=== PATIENT | male | born 1945 | race Caucasian/White ===

== ENCOUNTER → 2018-01-12 07:53 | Outpatient (CLI) | payer MEDICARE, BC, SELFPAY ==
[2018-01-12 09:11] LABS: Hemoglobin A1C 6.2 % (4.5-6.2)
[2018-01-12 09:16] LABS: Microalb ug/mg Crea 21.1 ug/mg Cr
[2018-01-12 09:37] LABS: ALT 33 U/L (12-78); AST 23 U/L (15-37); Albumin 3.7 g/dL (3.4-5.0); Alkaline Phosphatase 103 U/L (46-116); Anion Gap 5.4 mmol/L (3-11); BUN 18 mg/dL (7-18); Bilirubin, Total 0.6 mg/dL (0.2-1.0); CO2 31.6 mmol/L (21.0-32.0); Calcium 9.2 mg/dL (8.5-10.1); Chloride 102 mmol/L (98-107); Cholesterol 233 mg/dL (50-200); Estimated GFR 59.68 (mL/min/1.73m2); Glucose 142 mg/dL (70-100); HDL Cholesterol 34 mg/dL (40-60); LDL CHOLESTEROL 157 mg/dL (<100); Potassium 3.6 mmol/L (3.5-5.1); Sodium 139 mmol/L (136-145); Triglyceride 271 mg/dL (30-150)
== END ==
PROVIDERS: PCP Family Medicine; Visit Provider Family Medicine
DX: E11.9 Type 2 diabetes mellitus without complications (principal); E78.5 Hyperlipidemia, unspecified; I10 Essential (primary) hypertension
CPT/HCPCS: 36415; 80053; 80061; 83721; 82043; 82570; 83036

== ENCOUNTER 2018-01-27 11:44 | Outpatient (REF) | payer MEDICARE, BC, SELFPAY ==
--- NOTE | 2018-01-27 11:30 | SKI_PTH ---
PATIENT: Franc Toledo LOC: [facility] U#:[id number] AGE/SX: 72/M ROOM: RE01/27/[address]: Reena Grove MD, DC : 1945 BED: DIS: 01/27/2018 SPEC #: [id number] RECD: 01/27/18 13:00 STATUS: BENJAMÍN REDarío #: [id number] FELA: 01/27/18 11:[address]: Reena Grove DEPT: Surgical Specimen RECD BY: Estephania Barraza Tissues: 1 - SKIN BIOPSY(SHAVE/PUNCH) Procedures: SKIN LEVEL 4 SPECIAL STAIN 1 Comments: [id number]
== END 2018-01-27 12:04 ==
LOC: LBN 11:44
PROVIDERS: PCP Family Medicine; Visit Provider Family Medicine
DX: L28.0 Lichen simplex chronicus (principal); L41.0 Pityriasis lichenoides et varioliformis acuta
CPT/HCPCS: 88305; 88312

== ENCOUNTER 2019-05-26 02:13 | Outpatient (CLI) | payer MEDICARE, BC, SELFPAY ==
--- NOTE | 2019-05-26 08:31 | DI.RAD_ITS ---
EXAM: XR SHOULDER LT COMPLETE 2+V INDICATION: LT SHOULDER PAIN, M25.512. COMPARISON: No exams were available for comparison TECHNIQUE: 2D digital imaging was performed. FINDINGS: There is no fracture or dislocation. There are mild degenerative changes of the glenohumeral joint. There is some spurring at the tip of the acromion and mild spurring at the AC joint. A tiny calcif ication is seen near the greater tuberosity which could indicate calcific tendinosis. IMPRESSION: Mild degenerative changes.
== END 2019-05-26 02:33 ==
PROVIDERS: PCP Family Medicine; Visit Provider Family Medicine
DX: M25.512 Pain in left shoulder (principal); M19.012 Primary osteoarthritis, left shoulder
CPT/HCPCS: 73030

== ENCOUNTER → 2019-06-16 09:22 | Outpatient (BNVA) | payer MEDICARE, BC, SELFPAY | PROVIDERS: PCP Family Medicine; Referring Provider Family Medicine; Visit Provider Student in an Organized Health Care Education/Training Program | DX: M75.102 Unspecified rotator cuff tear or rupture of left shoulder, not specified as traumatic (principal); M75.22 Bicipital tendinitis, left shoulder; M75.52 Bursitis of left shoulder; M75.42 Impingement syndrome of left shoulder; M75.02 Adhesive capsulitis of left shoulder | CPT/HCPCS: 99204 ==

== ENCOUNTER 2019-06-24 01:35 | Outpatient (CLI) | payer MEDICARE, BC, SELFPAY ==
--- NOTE | 2019-06-24 08:07 | DI.MRI_ITS ---
EXAM: MR UPPER JOINT LT WO CLINICAL HISTORY: Acute, traumatic left shoulder pain, weakness,LT ROTATOR CUFF TENDINITIS, Recent fall, decreased range of motion, bursitis, capsulitis, m75.52,m75.42,m75.22,m75.02 TECHNIQUE: Multiplanar multisequence MRI was performed. COMPARISON: XR SHOULDER LT COMPLETE 2+V from 05/26/2019 FINDINGS: MR of the shoulder was performed according to the usual protocol. No significant bony signal abnorma lity is seen. There are moderate hypertrophic degenerative changes at the acromioclavicular joint. G lenoid labrum grossly intact by noncontrast criteria. Small shoulder joint effusion noted, small estefania ntity of free fluid in the subacromial bursa. Biceps tendon shows markedly abnormal signal and thickening in its course over the humeral head. No significant displacement from the bicipital groove. Linear abnormal signal in biceps tendon proximal to the bicipital groove, possible longitudinal tear. No retracted tear of the biceps tendon. There is thickening and abnormal signal in subscapularis, supraspinatus, and infraspinatus tendons. Small interstitial Luna attachment tears of all 3 tendons appeared to be present. Undersurface tear of distal supraspinatus noted. No convincing full-thickness tear or retraction seen involving the ro tator cuff. IMPRESSION: Marked tendinosis of the biceps tendon with suspected linear non retracted tear proximal to the bicip ital groove. Marked supraspinatus, subscapularis, and infraspinatus tendinosis with multiple small interstitial te ars of these tendons near their humeral attachment and also, in the case of the infraspinatus, more p roximally. No definite full-thickness or retracted rotator cuff tear.
== END 2019-06-24 01:55 ==
PROVIDERS: PCP Family Medicine; Visit Provider Student in an Organized Health Care Education/Training Program
DX: M25.512 Pain in left shoulder (principal); M75.22 Bicipital tendinitis, left shoulder; M75.52 Bursitis of left shoulder; M75.42 Impingement syndrome of left shoulder
CPT/HCPCS: 73221

== ENCOUNTER → 2019-06-29 14:41 | Outpatient (BNVA) | payer MEDICARE, BC, SELFPAY | PROVIDERS: PCP Family Medicine; Referring Provider Family Medicine; Visit Provider Student in an Organized Health Care Education/Training Program | DX: S46.012D Strain of muscle(s) and tendon(s) of the rotator cuff of left shoulder, subsequent encounter (principal); X58.XXXD Exposure to other specified factors, subsequent encounter; M75.22 Bicipital tendinitis, left shoulder; M75.52 Bursitis of left shoulder; M75.42 Impingement syndrome of left shoulder; M75.02 Adhesive capsulitis of left shoulder | CPT/HCPCS: 99214 ==

== ENCOUNTER 2019-12-04 06:58 | Outpatient (CLI) | payer MEDICARE, BC, SELFPAY | END 2019-12-04 07:18 | PROVIDERS: PCP Family Medicine; Visit Provider Family Medicine | DX: Z11.59 Encounter for screening for other viral diseases (principal) | CPT/HCPCS: U0003 ==

== ENCOUNTER 2019-12-06 09:00 | Outpatient (CLI) | payer MEDICARE, BC, SELFPAY ==
[2019-12-10 22:41] LABS: SARS-CoV-2 RNA Undetected (Undetected)
== END 2019-12-06 09:20 ==
PROVIDERS: PCP Family Medicine; Visit Provider Family Medicine
DX: Z11.59 Encounter for screening for other viral diseases (principal)
CPT/HCPCS: U0003

== ENCOUNTER 2019-12-30 03:23 | Outpatient (CLI) | payer MEDICARE, BC, SELFPAY ==
[2019-12-30 09:09] LABS: Hemoglobin A1C 6.3 % (3.8-5.6)
[2019-12-30 09:58] LABS: ALT 30 U/L (16-63); AST 20 U/L (15-37); Albumin 3.6 g/dL (3.4-5.0); Alkaline Phosphatase 82 U/L (46-116); BUN 21 mg/dL (7-18); Bilirubin, Total 0.5 mg/dL (0.2-1.0); CREATININE 0.99 mg/dL (0.70-1.30); Calcium 9.1 mg/dL (8.5-10.1); Calculated LDL 126 mg/dL (<100); Chloride 104 mmol/L (98-107); Cholesterol 221 mg/dL (<200); Glucose 152 mg/dL (74-106); HDL Cholesterol 27 mg/dL (40-60); Potassium 3.6 mmol/L (3.5-5.1); Sodium 140 mmol/L (136-145); Total Protein 6.8 g/dL (6.4-8.2); Triglyceride 344 mg/dL (<150)
[2019-12-31 11:25] LABS: PSA, Screening 0.4 ng/mL (0.0-6.5)
== END 2019-12-30 03:43 ==
PROVIDERS: PCP Family Medicine; Visit Provider Family Medicine
DX: E11.9 Type 2 diabetes mellitus without complications (principal); I10 Essential (primary) hypertension; Z00.00 Encounter for general adult medical examination without abnormal findings
CPT/HCPCS: 36415; 80053; 80061; 84153; 83036

== ENCOUNTER 2022-02-11 10:11 | Outpatient (REF) | payer MEDICARE, BC, SELFPAY ==
[2022-02-11 12:24] LABS: Bilirubin Negative (Negative); Blood Trace-intact (Negative); Clarity Clear (Clear); Glucose Negative (Negative); Ketones Negative (Negative); Leukocyte Esterase Negative (Negative); Nitrite Negative (Negative); Specific Gravity 1.025 (1.005-1.025); Urobilinogen 0.2 EU/dL (Up TO 0.2); pH 5.5 (5-8)
[2022-02-11 12:29] LABS: Bacteria Negative HPF (Negative); C & S Indicated? No; Casts Negative LPF (Negative); Crystals Negative HPF (Negative); Epithelial Cells Rare HPF (Negative); Mucus Negative (Negative); WBC Negative HPF (0-5)
== END 2022-02-11 10:12 | disposition home or self-care (01) ==
LOC: LBN 10:11
PROVIDERS: PCP Family Medicine; Visit Provider Family Medicine
DX: R31.9 Hematuria, unspecified (principal)
CPT/HCPCS: 81003; 81015

== ENCOUNTER 2022-02-18 12:44 | Outpatient (REF) | payer MEDICARE, BC, SELFPAY ==
[2022-02-18 13:50] LABS: Bilirubin Negative (Negative); Blood Negative (Negative); Clarity Clear (Clear); Glucose 100 mg/dL (Negative); Ketones Negative (Negative); Leukocyte Esterase Negative (Negative); Nitrite Negative (Negative); Specific Gravity 1.025 (1.005-1.025); Urobilinogen 0.2 EU/dL (Up TO 0.2); pH 5.5 (5-8)
== END 2022-02-18 12:45 | disposition home or self-care (01) ==
LOC: LBN 12:44
PROVIDERS: PCP Family Medicine; Visit Provider Family Medicine
DX: R31.9 Hematuria, unspecified (principal)
CPT/HCPCS: 81003

== ENCOUNTER 2022-03-14 16:28 | Outpatient (REF) | payer MEDICARE, BC, SELFPAY ==
[2022-03-14 15:09] LABS: Bilirubin Negative (Negative); Blood Negative (Negative); Clarity Clear (Clear); Glucose Negative (Negative); Ketones Negative (Negative); Leukocyte Esterase Negative (Negative); Nitrite Negative (Negative); Specific Gravity >= 1.030 (1.005-1.025); Urobilinogen 0.2 EU/dL (Up TO 0.2)
== END 2022-03-14 16:29 | disposition home or self-care (01) ==
LOC: LBN 16:28
PROVIDERS: PCP Family Medicine; Visit Provider Family Medicine
DX: R31.9 Hematuria, unspecified (principal)
CPT/HCPCS: 81003

== ENCOUNTER → 2022-04-01 09:51 | Outpatient (BNVA) | payer MEDICARE, BC, SELFPAY | PROVIDERS: PCP Family Medicine; Referring Provider Family Medicine; Visit Provider Surgery | DX: Z12.11 Encounter for screening for malignant neoplasm of colon (principal); K63.5 Polyp of colon | CPT/HCPCS: 99242 ==

== ENCOUNTER 2022-05-17 08:15 | Day surgery (SDC) | payer MEDICARE, BC, SELFPAY ==
--- NOTE | 2022-05-16 20:24 | HPE_ITS ---
Assessment and Plan Assessment and plan (1) Adenomatous polyps: Status: Acute Assessment and plan: Screening colonoscopy today History of Present Illness History of Present Illness Chief Complaint: Screening colonoscopy Narrative: Is a 76 years old and is here for screening colonoscopy. His last one was in 2019. It was performed at [facility]. The best of his understanding, he had 12 polyps removed. He tolerated the procedure without any problems. In the interim, he has had no significant change in his bowel habits like melena or hematochezia. He has been maintaining his weight without any difficulty. He denies any family history of colon cancer. 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 Left ventricular hypertrophy (Chronic 03/14/14) Hyperlipidemia (Chronic) Essential hypertension (Chronic 02/18/13) left ventricular hypertrophy by echo Diabetes mellitus (Chronic 12/12/14) Degenerative lumbar spinal stenosis (Chronic 10/03/16) extruded disc; disc protrusion, lateral recess stenosis 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 Medical History Abnormal liver function test now resolved Acute midline thoracic back pain (12/15/17) Alcohol intake above recommended sensible limits Alcohol intake above recommended sensible limits Bursitis of left shoulder Cerumen impaction Colon polyp 10/23/15 [facility] [place]- 4 MM SESSILE POLYP Degenerative lumbar disc (09/17/16) L4-5 severe Heel pain 08/27/12 Left shoulder pain Otalgia Surgical History Extraction of cataract bilat Eye surgery Right eye retinal 2005 H/O eye surgery right eye retina History of eye surgery Family History Mother Heart disease CHF Hypercholesterolemia Father No problems noted. Maternal Grandfather No problems noted. Maternal Grandmother No problems noted. Paternal Grandmother No problems noted. Son No problems noted. Son No problems noted. Daughter No problems noted. Social History Smoking/Tobacco Use Status: Never Smoking risk assessment performed?: Yes Alcohol Intake: current Alcohol Intake frequency: 0-2 drinks per day Alcohol type: beer and hard liquor Drug use: Never Substance use type: does not use Caregiver/Support person: No Household members: spouse Housing: house Communication Needs: None Do you need help understanding health information?: Never Pets and animals: No Current gender identity: male and decline to answer What is your relationship status?: How often do you talk on the phone with friends or family?: decline to answer How often do you get together with friends or relatives?: decline to answer How often do you attend evangelical or roman catholic services?: decline to answer Do you belong to any clubs or organized social groups?: decline to answer Panel score (0-1 are the most socially isolated patients): 1 What type of physical activity do you participate in: other Details: Cardio Duration: 30-45 minutes/day Frequency: 3-4 times per week Christen/Druze: Pentecostalism Special christen needs: No Seatbelt use: always Drive intox or ride w/intox coach tour driver: No Do you feel safe at home: Yes Meds Allergies and Home Medications Allergies Allergy/AdvReac Type Severity Reaction Status Date / Time No Known Allergies Allergy Verified 05/17/22 08:36 Home Medications Medication Instructions Recorded Confirmed Type multivitamin 1 tab PO DAILY 08/21/12 05/17/22 History magnesium oxide 1 tab PO DAILY 06/16/14 05/17/22 History ibuprofen 600 mg tablet 600 mg PO TID PRN 01/26/18 05/17/22 History triamcinolone acetonide 0.1 % 1 applic topical BID #30 grams 11/25/18 05/17/22 Rx topical cream betamethasone valerate 0.1 % 1 applic topical BID PRN rash #15 06/29/21 05/17/22 Rx topical cream grams clotrimazole 1 % topical cream 1 applic topical BID PRN rash #30 06/29/21 05/17/22 Rx grams potassium chloride 20 mEq 20 meq PO BID #180 tabs 08/14/21 05/17/22 Rx tablet,extended release hydrochlorothiazide 25 mg tablet 12.5 mg PO DAILY #90 tabs 08/16/21 05/17/22 Rx sildenafil 100 mg tablet 100 mg PO DAILY PRN sexual 08/28/21 05/17/22 Rx activity #30 tabs amlodipine 5 mg tablet 5 mg PO DAILY #90 tabs 10/08/21 05/17/22 Rx lisinopril 40 mg tablet 40 mg PO DAILY #90 tabs 10/08/21 05/17/22 Rx psyllium husk 0.4 gram capsule 0.4 g PO DAILY 04/01/22 05/17/22 History (Metamucil) benzonatate 100 mg capsule 100 mg PO TID PRN cough #30 caps 04/09/22 05/17/22 Rx Exam Const General: cooperative, healthy appearing and comfortable Orientation: awake and oriented x3 Eyes General: appearance normal, both eyes and all related structures Conjunctivae: conjunctivae normal Sclera: sclerae normal Resp Effort & Inspection: normal respiratory effort and able to speak in complete sentences Auscultation: clear to auscultation bilaterally Cardio Jugular venous pressure: no JVD Rate: regular rate Rhythm: regular rhythm Heart Sounds: S1 normal and S2 normal GI Inspection: non-distended Palpation: soft, no guarding, no hernias and nontender Auscultation: normal bowel sounds Skin General skin exam: normal turgor Neuro General: patient alert, patient awake and patient oriented x3 Cognition: normal cognition Extrem Right lower extremity: no edema Left lower extremity: no edema
--- NOTE | 2022-05-16 20:26 | W.PM.DSUDISC ---
Date of service: 05/17/22 Time of Service: 10:59 Discharge Plan Disposition Patient Disposition: Home Condition: Good Discharge Details Reason For Visit: Screening colonoscopy Attending Provider: Natanael Loo Primary Care Provider: Reena Grove Home Meds and New Rx's Prescriptions: Continued ibuprofen 600 mg tablet 600 mg PO TID PRN psyllium husk [Metamucil] 0.4 gram capsule 0.4 g PO DAILY multivitamin 1 EACH tablet 1 tab PO DAILY magnesium oxide 250 MG tablet 1 tab PO DAILY Label Comments: 12/16/16 pt states he only takes one tab daily ts triamcinolone acetonide 0.1 % cream 1 applic TP BID Qty: 30 0RF clotrimazole 1 % cream 1 applic topical BID PRN (Reason: rash) Qty: 30 0RF betamethasone valerate 0.1 % cream 1 applic topical BID PRN (Reason: rash) Qty: 15 0RF Rx Instructions: use sparingly for as few days as possible.Steroids on the face can be harmful potassium chloride 20 mEq tablet extended release 20 meq PO BID Qty: 180 3RF hydrochlorothiazide 25 mg tablet 12.5 mg PO DAILY Qty: 90 3RF sildenafil 100 mg tablet 100 mg PO DAILY PRN (Reason: sexual activity) Qty: 30 2RF Rx Instructions: administer 30 minutes to 4 hours before activity lisinopril 40 mg tablet 40 mg PO DAILY Qty: 90 3RF amlodipine 5 mg tablet 5 mg PO DAILY Qty: 90 3RF benzonatate 100 mg capsule 100 mg PO TID PRN (Reason: cough) Qty: 30 3RF Discontinued bisacodyl [Dulcolax (bisacodyl)] 5 mg tablet,delayed release (DR/EC) 5 mg PO ONCE Qty: 4 0RF Rx Instructions: take per colonoscopy instructions polyethylene glycol 3350 17 gram/dose powder 238 g PO ONCE Qty: 238 0RF Rx Instructions: take per colonoscopy instructions Discharge Instructions Instructions: Colorectal Polyps (GEN) Additional Instructions: 1. If tolerated, consume a soft, low fiber diet for 1-2 days. 2. Do not drive, drink alcohol, operate machinery, make critical decisions, or do activities that require coordination or balance for 24 hours. 3. Because air was put into your colon during the procedure, expelling air from your rectum (passing gas or farting) is normal. 4. You may not have a bowel movement for 1-3 days because of the colonoscopy prep. This is normal. 5. Go directly to the emergency room if you notice any of the following: Develop chills (warm to touch), or if you have a thermometer and your temperature is above 101 Difficulty breathing or difficultly swallowing Persistent vomiting Severe abdominal pain, other than gas cramps Severe chest pain Black, tarry stools Any bleeding ? exceeding one tablespoon 6. Call your physician if the site where your intravenous was started becomes red, swollen, painful, and warm to touch. 7. Your physician has reviewed your pre-procedure medications. Please continue to take those medications as previously ordered. You will be given specific information/education regarding any changes to your medications before leaving. Activity:: Activity as Tolerated Diet:: As Tolerated Discharge Orders Discharge Orders: Discharge Order (Routine); Ordered 05/16/22 Ordered By: Natanael Loo DS: Diagnosis Discharge Diagnosis (1) Adenomatous polyps: Status: Acute Asessment and Plan: The quality of your prep was great. We had good visualization of the entire colon. I removed 10 polyps total. These were basically in 3 clusters. One group was in the cecum, one group was around 110 cm from the anus, and 1 group was around 30 cm from the anus. I would expect to have a small amount of bleeding in your bowel movements over the next few days, and that should resolve on its own. I will contact you with the results of the pathology report once they are available. At that point, we can discuss the next steps, which I suspect will be an interval colonoscopy around 3 to 5 years from now.
--- NOTE | 2022-05-16 20:29 | W.COLOREPORT ---
Date of service: 05/17/22 Time of Service: 11:01 Colonoscopy Report Date of procedure: 05/17/22 Pre-op diagnosis general: Screening colonoscopy Post-op diagnosis procedure note: other (Colon polyps) Procedure: Colonoscopy with polypectomy Surgeon: Natanael Loo Anesthesia Type: General:No Airway Estimated blood loss (mL): 20 Pathology: other (Cecal polyps x3, colon polyps around 110 cm x 3, colon polyps around 30 cm x 4) Complications: None Disposition: same day Indications: Who is a is a 76-year-old male who was undergone colonoscopy in the past. He was diagnosed with colon polyps. He is following up today for his next screening colonoscopy. Prep: Miralax/Dulcolax Procedure Start Time: 10:08 Procedure End Time: 10:36 Retraction Time: 23 Findings: Cecal polyps, colon polyps around 110 cm, and colon polyps around 30 cm. Procedure Description: After the induction of monitored anesthetic care, and with the patient in left lateral decubitus position, I began by performing an external anorectal exam.? Perineum and skin were normal, as was the anal verge.? There was no evidence of external hemorrhoids.? Next, I performed a digital rectal exam.? I did not appreciate any abnormal findings.? Next, I advanced a colonoscope into the rectal vault.? I performed retroflexion.? This was normal.? Using insufflation, I then advanced the colonoscope beyond the rectal folds and into the sigmoid colon before advancing towards the cecum.? The quality of the prep was excellent.? The scope was noted to be in the cecum by identification of the ileocecal valve and appendiceal orifice.? I was able to identify 3 polyps in the cecum. There were several centimeters apart. They were all less than 0.5 cm in size. They were all sessile. I performed cold forceps polypectomy at all 3 sites, and there was minimal bleeding. Around 110 cm, identified another cluster of polyps. They were by several centimeters around the colon diameter. They were all less than 0.5 cm. 2 were sessile, and the third was mildly pedunculated. I performed completion polypectomy at all 3 sites with cold forceps. There was minimal bleeding.. I then began withdrawing the colonoscope using repeated irrigation as necessary for full evaluation of the colonic mucosa. Around 30 cm from the anal verge I identified 4 more polyps. ?These were all sessile in nature, and all were less than 0.5 cm. ?I was able to remove them with a cold forcep polypectomy.. ?I examined the sites, and there was minimal bleeding. ?Once this was completed, I continued to withdraw the scope and examine the remainder of the colonic mucosa.?Once the scope was withdrawn to the level of the rectum, great care was taken to examine portions of the rectal folds.? Finally, the scope was withdrawn and the patient was brought to the same-day surgery recovery unit as the anesthetic wore off. ?The findings and instructions were shared with the patient prior to discharge.
[2022-05-17 08:44] VITALS: BP 139/80; PULSE 70; RESP 16; TEMP 36.7; O2SAT 97
[2022-05-17] MEDS: Lactated Ringers 1,000 ML 80 ML IV (09:08)
--- NOTE | 2022-05-17 09:15 | W.ANESPRE ---
General Info Date of Service Date Performed: 05/17/22 Height: 5 ft 11 in Weight: 102.9 kg Body Mass Index (BMI): 31.6 Surgical Procedure: Operation Date: 05/17/22 10:05 Proposed Procedure Side Surgeon aurelio Loo MD Meds Allergies and Home Medications Allergies Allergy/AdvReac Type Severity Reaction Status Date / Time No Known Allergies Allergy Verified 05/17/22 08:36 Home Medication Medication Instructions Recorded multivitamin 1 tab PO DAILY 08/21/12 magnesium oxide 1 tab PO DAILY 06/16/14 ibuprofen 600 mg tablet 600 mg PO TID PRN 01/26/18 triamcinolone acetonide 0.1 % 1 applic topical BID #30 grams 11/25/18 topical cream betamethasone valerate 0.1 % 1 applic topical BID PRN rash #15 06/29/21 topical cream grams clotrimazole 1 % topical cream 1 applic topical BID PRN rash #30 06/29/21 grams potassium chloride 20 mEq 20 meq PO BID #180 tabs 08/14/21 tablet,extended release hydrochlorothiazide 25 mg tablet 12.5 mg PO DAILY #90 tabs 08/16/21 sildenafil 100 mg tablet 100 mg PO DAILY PRN sexual 08/28/21 activity #30 tabs amlodipine 5 mg tablet 5 mg PO DAILY #90 tabs 10/08/21 lisinopril 40 mg tablet 40 mg PO DAILY #90 tabs 10/08/21 psyllium husk 0.4 gram capsule 0.4 g PO DAILY 04/01/22 (Metamucil) benzonatate 100 mg capsule 100 mg PO TID PRN cough #30 caps 04/09/22 Current Visit Medications: Current Medications Generic Name Dose Route Start Last Admin Trade Name Freq PRN Reason Stop Dose Admin Hyoscyamine Sulfate 0.125 mg 05/16/22 20:30 Hyoscyamine 0.125 Mg Sl/Oral/Chew SL DIRECTED PRN Ringer's Solution 1,000 mls @ 80 mls/hr 05/17/22 06:00 05/17/22 09:08 IV 06/15/22 23:59 80 mls/hr INFUSION AUGUSTINE Administration IV Miscellaneous Supplies 1 each 05/17/22 06:00 Iv Access IV 06/15/22 23:59 DIRECTED AUGUSTINE Ondansetron HCl 4 mg 05/16/22 20:30 Ondansetron 4 Mg/2 Ml Vial IVP Q4H PRN PRN Nausea / Vomiting Sodium Chloride 0 ml 05/17/22 06:00 Normal Saline Flush 10 Ml Syr IV 06/15/22 23:59 PRN PRN Sodium Chloride 0 ml 05/17/22 06:00 Normal Saline 10 Ml Vial IJ 06/15/22 23:59 DIRECTED PRN Sterile Water 0 ml 05/17/22 06:00 Water,Injection,Sterile 10 Ml Vial IJ 06/15/22 23:59 DIRECTED PRN PFSH Active Problems Active Problems: Problem Status Onset Code Adenomatous polyps D36.9 Hematuria R31.9 Chronic cough R05 Sensation of fullness in left ear H93.8X2 Otorrhea, left ear H92.12 Adhesive capsulitis of left shoulder M75.02 Impingement syndrome of left shoulder M75.42 Tendinitis of long head of biceps brachii of left shoulder M75.22 Left rotator cuff tear M75.102 Heel pain 08/27/12 M79.673 Liver function test abnormality R94.5 PLEVA (pityriasis lichenoides et varioliformis acuta) L41.0 Psoriasis 12/16/16 L40.9 Leukoencephalitis, subacute 03/08/14 A81.1 Left ventricular hypertrophy 03/14/14 I51.7 Hyperlipidemia E78.5 Essential hypertension 02/18/13 I10 Diabetes mellitus 12/12/14 E11.9 Degenerative lumbar spinal stenosis 10/03/16 M48.061 B-cell lymphoma 04/26/13 C85.10 Medical History Medical History Abnormal liver function test now resolved Acute midline thoracic back pain (12/15/17) Alcohol intake above recommended sensible limits Alcohol intake above recommended sensible limits Bursitis of left shoulder Cerumen impaction Colon polyp 10/23/15 [facility]- 4 MM SESSILE POLYP Degenerative lumbar disc (09/17/16) L4-5 severe Heel pain 08/27/12 Left shoulder pain Otalgia Medical History Comments:: reported it was noted that Franc had some reactive airway under general anesthesia when at [facility] for lumbar surgery. Surgical History Surgical History Extraction of cataract bilat Eye surgery Right eye retinal 2006 H/O eye surgery right eye retina History of eye surgery Tobacco Smoking/Tobacco Use Status: Never Alcohol Alcohol Intake: current Alcohol intake frequency: 0-2 drinks per day Alcohol type: beer and hard liquor Substance Use Substance use: Never Substance use type: does not use Vital Signs and Lab Results Vital Signs Most Recent Vital Signs in EMR: Most Recent Vital Signs Temp Pulse Resp BP Pulse Ox 36.7 C 70 16 139/80 97 05/17/22 08:44 05/17/22 08:44 05/17/22 08:44 05/17/22 08:44 05/17/22 08:44 Lab Results Blood Type / Crossmatch: No Data to Display Complete Blood Count: No Data to Display Complete Metabolic Panel: No Data to Display Liver Function Panel: No Data to Display Coagulation Panel: No Data to Display Cardiac Panel: No Data to Display Arterial Blood Gas: No Data to Display Venous Blood Gas: No Data to Display Pancreas Panel: No Data to Display Thyroid Panel: No Data to Display Infectious Disease: No Data to Display Blood Cultures: No Data to Display Toxicology Panel: No Data to Display Imaging and Studies Imaging and Studies Study information below may be from another EMR and interpreted by another provider. Please see original notes in EMR for more complete details. Stress Test Summary: 05/03/14:Normal myocardial perfusion imaging; LVEF 69%. Echocardiogram Summary: 03/14/14 LEFT VENTRICLE/LVEF: LVEF 65-70%. Normal size. Severe, concentric left ventricular hypertrophy. Septum measures 14 mm thickness, posterior wall 13 mm. RIGHT VENTRICLE: Normal size and function. AORTIC VALVE: Trileaflet. Sclerotic leaflets. No aortic stenosis or insufficiency. MITRAL VALVE: Mild mitral insufficiency, no stenosis. Mild mitral annular calcifications. TRICUSPID VALVE: Mild tricuspid insufficiency. RSV/PA/RIGHT ATRIAL PRESSURE: Pulmonary artery pressure estimated at 15-20 mmHg plus right atrial pressure. PULMONIC VALVE: No pulmonic stenosis or insufficiency. ATRIA: Within normal limits. DIASTOLIC INDICES: GREAT VESSELS: The inferior vena cava is normal in size and collapses with inspiration. Right atrial pressure estimated at less than 10 mmHg. PERICARDIUM: No effusion, rhythm sinus. Carotid Artery Summary:: 03/03/14:AROTID ULTRASOUND: There is a minimal amount of calcified plaque seen in both common carotid bulbs. The velocity measurements obtained are within the normal range bilaterally. The findings are consistent with a mild, 1-39% degree of stenosis. Both vertebral arteries show normal antegrade flow. IMPRESSION: Minimal calcific plaque. No significant stenosis Anesthesia Assessment and Plan Anesthesia History Personal History: No History of Anesthesia Complications Family History: No Family History of Anesthesia Complications Exercise Tolerance Exercise Tolerance: Metabolic Equivalents>4 Pertinent Negatives Pertinent Negatives: No Symptoms of GERD Cardiac & Pulmonary Exam Cardiac Exam: Normal S1/S2 Heart Sounds Pulmonary Exam: Clear Bilateral Breath Sounds Implantable Cardiac Device Does patient have a Pacemaker or an ICD?: No Airway Exam Known Difficult Airway: No Mallampati Class: 1 Mouth Opening: Normal (> 3cm) Thyromental Distance: Greater than 3 cm Neck Range of Motion: Full ROM Neck Circumference: Normal Teeth Condition: Normal Dentition ASA Classification ASA Score: ASA 3 Emergency Case?: No NPO Status NPO Status: NPO Clears >2 hours, Solids >8 hours Anesthesia Plan Resuscitation Status: Full Code Anesthesia Technique: General Anesthesia Airway Planned: Natural Airway Monitors Used: Standard Monitors
[2022-05-17 09:50] VITALS: BMI 31.6
--- NOTE | 2022-05-17 10:22 | BOWEL_PTH ---
PATIENT: Franc Toledo LOC: [facility] U#:[id number] AGE/SX: 76/M ROOM: RE05/17/[address]: Natanael Loo MD : 1945 BED: DIS: 05/17/2022 SPEC #: [id number] RECD: 05/17/22 12:43 STATUS: BENJAMÍN REQ #: [id number] FELA: 05/17/22 10:[address]: Natanael Loo DEPT: Surgical Specimen RECD BY: Jonna Quezada ENTERED: 05/17/22 12:45 SP TYPE: Bowel OTHR DR: Reena Grove MD, DC Tissues: 1 - BIOPSY BOWEL 2 - BIOPSY BOWEL 3 - BIOPSY BOWEL Procedures: GROSS AND MICRO LEVEL 4 Comments: [id number]
[2022-05-17 10:45] VITALS: BP 111/75; PULSE 59; RESP 12; TEMP 36.5; O2SAT 95
[2022-05-17 11:13] VITALS: BP 129/78; PULSE 68; RESP 16; TEMP 36.5; O2SAT 95
--- NOTE | 2022-05-17 11:14 | W.ANESPOSTOP ---
Postoperative Evaluation Date, Time and Location Date Performed: 05/17/22 Time Performed: 10:50 Patient Location: Day Surgery Unit Vital Signs Most Recent Imported Vital Signs: Most Recent Vital Signs Temp Pulse Resp BP Pulse Ox 36.5 C 59 L 12 111/75 95 05/17/22 10:45 05/17/22 10:45 05/17/22 10:45 05/17/22 10:45 05/17/22 10:45 Pain Score Most Recent Pain Score: Most Recent Pain Score Pain Level 0 05/17/22 10:45 Assessment Mental Status: Awake (Alert & Oriented to Patient Baseline) Airway and Respiratory Function: Patent airway with normal (patient baseline) respiratory exam Cardiovascular Function: Hemodynamically Stable Hydration Status: Adequately Hydrated Nausea & Vomiting: No Nausea or Vomiting Pain: Pt. Denies Any Pain Peripheral Nerve Block: Patient did not receive a nerve block
== END 2022-05-17 11:55 | disposition home or self-care (01) ==
LOC: SUR 08:15
PROVIDERS: PCP Family Medicine; Visit Provider Surgery
PROC: 0DJD8ZZ Inspection of Lower Intestinal Tract, Via Natural or Artificial Opening Endoscopic (ICD-10-PCS; CPT 45378; principal; 2022-05-17 10:00)
DX: Z12.11 Encounter for screening for malignant neoplasm of colon (principal); Z86.010 Personal history of colon polyps; I10 Essential (primary) hypertension; E11.9 Type 2 diabetes mellitus without complications; K63.5 Polyp of colon
CPT/HCPCS: 45380; 88305

== ENCOUNTER 2022-07-29 07:59 | Outpatient (CLI) | payer MEDICARE, BC, SELFPAY ==
[2022-07-29 12:32] LABS: ALT 28 U/L (16-63); AST 21 U/L (15-37); Albumin 3.5 g/dL (3.4-5.0); Alkaline Phosphatase 95 U/L (46-116); Anion Gap 4.5 mmol/L (3-11); BUN 21 mg/dL (7-18); Bilirubin, Total 0.4 mg/dL (0.2-1.0); CO2 31.5 mmol/L (21.0-32.0); CREATININE 1.1 mg/dL (0.70-1.30); Calcium 9.9 mg/dL (8.5-10.1); Chloride 104 mmol/L (98-107); Estimated GFR 70.01 (mL/min/1.73m2); Glucose 158 mg/dL (74-106); Potassium 3.7 mmol/L (3.5-5.1); Sodium 140 mmol/L (136-145); Total Protein 7.2 g/dL (6.4-8.2)
[2022-07-29 14:23] LABS: Hemoglobin A1C 6.4 % (<5.7)
== END 2022-07-29 08:00 | disposition home or self-care (01) ==
LOC: LOS 07:59
PROVIDERS: PCP Family Medicine; Referring Provider Family Medicine; Visit Provider Family Medicine
DX: I10 Essential (primary) hypertension (principal); E11.9 Type 2 diabetes mellitus without complications; R94.5 Abnormal results of liver function studies
CPT/HCPCS: 36415; 80053; 83036

== ENCOUNTER 2023-04-23 02:58 | Outpatient (CLI) | payer MEDICARE, BC, SELFPAY ==
[2023-04-23 12:26] LABS: Abs Immature Grans 0.01 10^3/uL (0.0-0.06); Absolute Basophil Count 0.03 10^3/uL (0.0-0.2); Absolute Eosinophil Count 0.12 10^3/uL (0.0-0.7); Absolute Lymphocyte Count 1.28 10^3/uL (1.2-3.4); Absolute Monocyte Count 0.47 10^3/uL (0.1-0.8); Absolute Neutrophil Count 3.23 10^3/uL (1.2-6.7); Basophils % 0.6; Eosinophils % 2.3; HCT 45.1 % (40.0-50.0); HGB 15.4 g/dL (13.5-17.5); Immature Grans % 0.2; Lymphocytes % 24.9; MCH 31.7 pg (27.0-33.0); MCHC 34.1 % (32.0-36.0); MCV 93 fL (80-95); MPV 9.3 fL (8.0-11.0); Monocytes % 9.1; Neutrophils % 62.9; Platelet Count 159 10^3/uL (130-400); RBC 4.86 10^6/uL (4.36-5.78); RDW 13.8 % (11.8-14.1); RDW-SD 47.1 fL; WBC 5.14 10^3/uL (4.4-10.8)
[2023-04-23 12:42] LABS: ALT 26 U/L (16-63); AST 16 U/L (15-37); Albumin 3.6 g/dL (3.4-5.0); Alkaline Phosphatase 79 U/L (46-116); Anion Gap 6.9 mmol/L (3-11); BUN 23 mg/dL (7-18); Bilirubin, Total 0.7 mg/dL (0.2-1.0); CO2 30.1 mmol/L (21.0-32.0); CREATININE 1.3 mg/dL (0.70-1.30); Calcium 9.9 mg/dL (8.5-10.1); Chloride 102 mmol/L (98-107); Estimated GFR 56.93 (mL/min/1.73m2); Glucose 115 mg/dL (74-106); LDH 166 U/L (85-227); Potassium 3.7 mmol/L (3.5-5.1); Sodium 139 mmol/L (136-145); Total Protein 7.6 g/dL (6.4-8.2)
== END 2023-04-23 02:59 | disposition home or self-care (01) ==
LOC: LBO 02:58
PROVIDERS: PCP Family Medicine; Visit Provider Nurse Practitioner Adult Health
DX: C82.21 Follicular lymphoma grade III, unspecified, lymph nodes of head, face, and neck (principal)
CPT/HCPCS: 36415; 80053; 83615; 85025

== ENCOUNTER → 2023-05-07 01:35 | Outpatient (CLI) | payer MEDICARE, BC, SELFPAY ==
--- NOTE | 2023-05-07 09:33 | DI.RAD_ITS ---
Exam(s) XR THUMB RT EXAM: XR THUMB RT CLINICAL HISTORY: right thumb pain,m79.644. TECHNIQUE: 2D digital imaging was performed. COMPARISON: No exams were available for comparison FINDINGS: 3 views No evidence of fracture nor dislocation. The main findings are advanced degenerative changes at the interphalangeal joint of the thumb with advanced joint space narrowing and prominent osteophytes. Th e thumb metacarpophalangeal joint exhibits only mild degenerative changes and the 1st carpometacarpal joint between the base of the thumb metacarpal and the trapezium of the distal carpal row appears un remarkable. Other interphalangeal joints in the hand appear relatively unremarkable with the exception of the DIP joint of the 5th finger which exhibits similar findings to the thumb interphalangeal joint. IMPRESSION: As above. DATA REPOSITORY: RADIATION DOSE DELIVERED:
== END ==
PROVIDERS: PCP Family Medicine; Visit Provider Family Medicine
DX: M19.041 Primary osteoarthritis, right hand (principal)
CPT/HCPCS: 73140

== ENCOUNTER 2023-08-06 05:20 | Outpatient (CLI) | payer MEDICARE, BC, SELFPAY ==
[2023-08-06 10:04] LABS: ALT 38 U/L (16-63); AST 18 U/L (15-37); Albumin 3.5 g/dL (3.4-5.0); Alkaline Phosphatase 82 U/L (46-116); Anion Gap 7.6 mmol/L (3-11); BUN 22 mg/dL (7-18); Bilirubin, Total 0.6 mg/dL (0.2-1.0); CO2 29.4 mmol/L (21.0-32.0); Calcium 9.3 mg/dL (8.5-10.1); Calculated LDL 108 mg/dL (<100); Chloride 106 mmol/L (98-107); Cholesterol 178 mg/dL (<200); Glucose 141 mg/dL (74-106); HDL Cholesterol 43 mg/dL (40-60); Potassium 3.6 mmol/L (3.5-5.1); Sodium 143 mmol/L (136-145); Total Protein 7.2 g/dL (6.4-8.2); Triglyceride 135 mg/dL (<150)
[2023-08-06 10:25] LABS: Hemoglobin A1C 6.3 % (<5.7)
== END 2023-08-06 05:21 | disposition home or self-care (01) ==
LOC: LBO 05:20
PROVIDERS: PCP Family Medicine; Visit Provider Family Medicine
DX: I10 Essential (primary) hypertension (principal); E11.9 Type 2 diabetes mellitus without complications
CPT/HCPCS: 36415; 80053; 80061; 83036

== ENCOUNTER 2023-12-04 12:21 | Inpatient (IN) | payer MEDICARE, BC, SELFPAY ==
[2023-12-04] VITALS (32 sets, daily range): BP systolic 126–157; BP diastolic 52–74; PULSE 71–98; RESP 3–35; TEMP 36.4–39.4; O2SAT 90–95
--- NOTE | 2023-12-04 12:15 | RT.EKG_ITS ---
APPROVED REPORT Exam: Resting ECG Reason for Exam: Sepsis Patient Location: E HR:94 bpm ECG Measurements Heart Rate 94 AXIS MN 228 P 17 QRSd 138 QRS -81 QT 369 T 54 QTc 456 Conclusion Sinus rhythm...normal P axis, V-rate 60- 99 Atrial premature complexes...SV complexes w/ short R-R intvls Prolonged MN interval...MN >215, V-rate 91-120 Right bundle branch block...QRSd>120, terminal axis(90,270) Borderline ST elevation, lateral leads...ST >0.06mV, I aVL V5 V6
--- NOTE | 2023-12-04 12:30 | DI.RAD_ITS ---
Exam(s) XR PORTABLE CHEST AP EXAM: XR PORTABLE CHEST AP CLINICAL HISTORY: Fever, SOB, Cough, Hypoxia. TECHNIQUE: 2D digital imaging was performed. COMPARISON: No exams were available for comparison FINDINGS: Single AP portable view. Heart size is normal. The mediastinum is not widened. There increased markings in both lower lobes-probable infiltrates. No obvious pleural effusions. No pneumothorax. No fractures. IMPRESSION: Bilateral infiltrates. Recommend nonportable PA and lateral views when clinically possible or CT sca n. DATA REPOSITORY: RADIATION DOSE DELIVERED:
--- NOTE | 2023-12-04 12:33 | ED.GENADUL_ITS ---
Discharge Plan Disposition Patient Disposition: Admit to [facility] Condition: Serious Discharge Details Clinical Impression: Pneumonia, Acute confusion, Hypoxia Primary Care Provider: Reena Grove ED Provider: Alia Rose Home Meds and New Rx's Prescriptions: No Action atorvastatin 20 mg tablet 10 mg PO DAILY benzonatate 100 mg capsule 100 mg PO TID PRN (Reason: cough) 7 Days Qty: 20 0RF psyllium husk [Metamucil] 0.4 gram capsule 0.4 g PO DAILY aspirin [Adult Aspirin Regimen] 81 mg tablet,delayed release (DR/EC) 81 mg PO DAILY betamethasone valerate 0.1 % cream 1 applic topical BID PRN (Reason: rash) Qty: 15 0RF Rx Instructions: use sparingly for as few days as possible.Steroids on the face can be harmful clotrimazole 1 % cream 1 applic topical BID PRN (Reason: rash) Qty: 30 0RF amlodipine 5 mg tablet 5 mg PO DAILY Qty: 90 3RF hydrochlorothiazide 25 mg tablet 12.5 mg PO DAILY Qty: 90 3RF lisinopril 40 mg tablet 40 mg PO DAILY Qty: 90 3RF potassium chloride 20 mEq tablet extended release 20 meq PO BID Qty: 180 3RF magnesium oxide 250 MG tablet 1 tab PO DAILY Patient Comments: 12/16/16 pt states he only takes one tab daily ts triamcinolone acetonide 0.1 % cream 1 applic TP BID Qty: 30 0RF sildenafil 100 mg tablet 100 mg PO DAILY PRN (Reason: sexual activity) Qty: 30 2RF Rx Instructions: administer 30 minutes to 4 hours before activity sertraline 50 mg tablet 50 mg PO DAILY Qty: 90 4RF HPI General Mode of arrival: EMS . Date/Time Provider Initiated Documentation: 12/04/23 12:22 . Limitations to Documentation: no limitations and physical limitation . Information obtained by: patient, EMS, RN notes reviewed and old records reviewed . HPI Narrative: 78-year-old male presents to the ER via EMS with a chief complaint of URI type symptoms, productive cough, fever was seen in urgent care yesterday. Per EMS fever 102. They did give him an albuterol nebulizer on scene due to O2 sat of 88 to 89% on room air. Patient does not normally wear oxygen. Related Data Home Medications ?Medication ?Instructions ?Recorded ?Confirmed magnesium oxide 1 tab PO DAILY 06/16/14 12/04/23 triamcinolone acetonide 0.1 % 1 applic topical BID #30 grams 11/25/18 12/04/23 topical cream sildenafil 100 mg tablet 100 mg PO DAILY PRN sexual 08/28/21 12/04/23 activity #30 tabs psyllium husk 0.4 gram capsule 0.4 g PO DAILY 04/01/22 12/04/23 (Metamucil) amlodipine 5 mg tablet 5 mg PO DAILY #90 tabs 05/27/23 12/04/23 betamethasone valerate 0.1 % 1 applic topical BID PRN rash #15 05/27/23 12/04/23 topical cream grams clotrimazole 1 % topical cream 1 applic topical BID PRN rash #30 05/27/23 12/04/23 grams hydrochlorothiazide 25 mg tablet 12.5 mg (1/2 x 25 mg) PO DAILY #90 05/27/23 12/04/23 tabs lisinopril 40 mg tablet 40 mg PO DAILY #90 tabs 05/27/23 12/04/23 potassium chloride 20 mEq 20 meq PO BID #180 tabs 05/27/23 12/04/23 tablet,extended release sertraline 50 mg tablet 50 mg PO DAILY #90 tabs 07/03/23 12/04/23 aspirin 81 mg tablet,delayed 81 mg PO DAILY 08/26/23 12/04/23 release (Adult Aspirin Regimen) atorvastatin 20 mg tablet 10 mg PO DAILY 12/02/23 12/04/23 benzonatate 100 mg capsule 100 mg PO TID PRN cough 7 days #20 12/02/23 12/04/23 caps Previous Rx's ?Medication ?Instructions ?Recorded triamcinolone acetonide 0.1 % 1 applic topical BID #30 grams 11/25/18 topical cream sildenafil 100 mg tablet 100 mg PO DAILY PRN sexual 08/28/21 activity #30 tabs amlodipine 5 mg tablet 5 mg PO DAILY #90 tabs 05/27/23 betamethasone valerate 0.1 % 1 applic topical BID PRN rash #15 05/27/23 topical cream grams clotrimazole 1 % topical cream 1 applic topical BID PRN rash #30 05/27/23 grams hydrochlorothiazide 25 mg tablet 12.5 mg (1/2 x 25 mg) PO DAILY #90 05/27/23 tabs lisinopril 40 mg tablet 40 mg PO DAILY #90 tabs 05/27/23 potassium chloride 20 mEq 20 meq PO BID #180 tabs 05/27/23 tablet,extended release sertraline 50 mg tablet 50 mg PO DAILY #90 tabs 07/03/23 benzonatate 100 mg capsule 100 mg PO TID PRN cough 7 days #20 12/02/23 caps Allergies Allergy/AdvReac Type Severity Reaction Status Date / Time No Known Allergies Allergy Verified 12/04/23 12:32 General HILARY: 2 Review of Systems All systems reviewed & are unremarkable except as noted in HPI and below Constitutional Constitutional: Reports as per HPI and Reports fever(s) Cardiovascular Cardiovascular: Reports dyspnea Respiratory Respiratory: Reports as per HPI, Reports change in phlegm color, Reports chest congestion, Reports cough and Reports dyspnea Gastrointestinal Gastrointestinal: Denies diarrhea, Denies nausea and Denies vomiting Genitourinary Genitourinary: Reports urinary incontinence Exam Narrative Exam Narrative: Constitutional: Alert and oriented x2. Appears stated age. Normal body habitus. Appears slightly lethargic, he does respond to verbal. He presents incontinent of urine soaked in urine and hot to the touch. Head: Normocephalic, no trauma. Eyes: Pupils PERRL, Red reflex noted, EOM's intact. Eyelids symmetrical without lesions, discharge, or swelling. ENT: Bilateral TM's WNL, External ear normal to inspection, no mastoid TTP, swelling, or erythema, Nasal turbinates WNL, no nasal discharge. Normal dentition, Posterior pharynx WNL, no exudate. Chest: RRR, Normal S1, S2, distal pulses intact. Resp: Right lower lobe rhonchi and crackles noted, no wheezing noted in the upper lobes, Abdomen: Soft, non-distended, Normoactive bowel sounds all 4 quads. Musculoskeletal: Unable to assess gait, moves all 4 extremities without difficulty. Skin: No suspicious rashes or lesions. Capillary refill less than 2 sec. Neurologic: Cranial nerves II-XII intact. Alert and oriented x 2. Motor: No deficits noted. Sensory: Intact bilaterally all 4 extremities. Appears somewhat confused. Hematologic/Lymphatic: No ecchymosis, no lymphadenopathy. Resp Effort & Inspection: cough Auscultation: crackles and rhonchi Neuro General: patient awake and patient confused Cranial Nerves: no nystagmus and tongue midline Cognition: abnormal cognition Motor: no pronator drift and strength abnormal right lower extremity other 3 / 5 Course Lab/Test Results Lab/Test Results: 12/04/23 12:31 Blood Blood Culture - Pending 12/04/23 12:31 Blood Blood Culture - Pending Medical Decision Making 78-year-old male presents to the ER via EMS with a chief complaint of URI type symptoms, productive cough, fever was seen in urgent care yesterday. Per EMS fever 102. They did give him an albuterol nebulizer on scene due to O2 sat of 88 to 89% on room air. Patient does not normally wear oxygen. Patient presents to the ER soaked in urine, he is slightly somnolent, answers questions appropriately when asked, he is currently on 4 L nasal cannula dips down to 88% per senior staff consultant on 2 L nasal cannula. He did receive an albuterol neb prior to arrival by EMS, IV was started prior to arrival. 102 temp documented per EMS prior to arrival. He is febrile heart rate 98 blood pressure 151/74. He does have a past medical history of high cholesterol hypertension, B-cell lymphoma diagnosed in 2012, leukoencephalitis,DM, Chest x-ray shows bilateral infiltrates, no leukocytosis, lactate within normal limits, sodium 138 potassium slightly low at 3.1, glucose 156, platelets are low at 127 slightly, proBNP 658 albumin 3.3, he does have trace blood in his urine no ago sites or nitrites noted. Fluvid is pending at this time. Patient has not received his second albuterol nebulizer at this time or Solu- Medrol. Doxycycline 100 mg IV piggyback ordered, blood cultures x 2 pending. I do anticipate admission for pneumonia, hypoxemia and confusion pending head CT. 1441: Spoke with Dr. Menjivar hospitalist regarding patient case in details he agrees to accept patient for admission, discussed plan of care with who verbalized understanding. Medical Records Medical records reviewed: Yes I reviewed the patient's medical records. Lab Data Lab results reviewed: Yes I reviewed the patient's lab results. Labs: 12/04/23 13:15 Blood Blood Culture - Pending 12/04/23 13:10 Blood Blood Culture - Pending Laboratory Tests Range/Units 12/04/23 12/04/23 12/04/23 12:44 12:52 13:10 WBC (4.4-10.8) 10^3/uL 5.27 RBC (4.36-5.78) 10^6/uL 4.45 Hgb (13.5-17.5) g/dL 13.9 Hct (40.0-50.0) % 41.0 MCV (80-95) fL 92 MCH (27.0-33.0) pg 31.2 MCHC (32.0-36.0) % 33.9 RDW (11.8-14.1) % 13.9 Plt Count (130-400) 10^3/uL 127 L MPV (8.0-11.0) fL 9.1 Immature Gran % % 0.4 Neutrophils % % 84.8 Lymphocytes % % 9.1 Monocytes % % 4.9 Eosinophils % % 0.6 Basophils % % 0.2 Nucleated RBC % (0.0-0.3) % 0.0 Absolute Neutrophils (1.2-6.7) 10^3/uL 4.47 Absolute Lymphocytes (1.2-3.4) 10^3/uL 0.48 L Absolute Monocytes (0.1-0.8) 10^3/uL 0.26 Absolute Eosinophils (0.0-0.7) 10^3/uL 0.03 Absolute Basophils (0.0-0.2) 10^3/uL 0.01 VBG Lactate (0.6-1.4) mmol/L 1.0 Sodium (136-145) mmol/L 138 Potassium (3.5-5.1) mmol/L 3.1 L Chloride (98-107) mmol/L 102 Carbon Dioxide (21.0-32.0) mmol/L 30.8 Anion Gap (3-11) mmol/L 5.2 BUN (7-18) mg/dL 18 Creatinine (0.70-1.30) mg/dL 1.2 Est GFR (CKD-EPI 2020) (mL/min/1.73m2) 62.29 Glucose (74-106) mg/dL 156 H Calcium (8.5-10.1) mg/dL 9.0 Magnesium (1.8-2.4) mg/dL 1.6 L Total Bilirubin (0.2-1.0) mg/dL 0.57 AST (15-37) U/L 23 ALT (16-63) U/L 33 Alkaline Phosphatase (46-116) U/L 88 Troponin I (< or =60) ng/L < 50 NT-Pro-B Natriuret Pep (<300) pg/mL 658 H Total Protein (6.4-8.2) g/dL 7.1 Albumin (3.4-5.0) g/dL 3.3 L Urine Color (Yellow) Yellow Urine Clarity (Clear) Clear Urine pH (5-8) 5.0 Ur Specific [place] (1.005-1.025) 1.020 Urine Protein (Neg-Trace) mg/dL Negative Urine Ketones (Negative) mg/dL Negative Urine Blood (Negative) Trace-intact H Urine Nitrite (Negative) Negative Urine Bilirubin (Negative) Negative Urine Urobilinogen (Up to 0.2) mg/dL 0.2 Ur Leukocyte Esterase (Negative) Negative Urine RBC (0-2) HPF 0-2 Urine WBC Not Applicable Ur Epithelial Cells (Negative) HPF Few Urine Crystals Not Applicable Urine Bacteria Not Applicable Urine Mucus Not Applicable Ur Culture Indicated? No Urine Glucose (Negative) mg/dL Negative COVID-19 Source Nasopharynx SARS-CoV-2 (PCR) (Negative) Negative Influenza Type A (PCR) (Negative) Negative Influenza Type B (PCR) (Negative) Negative RSV (PCR) (Negative) Negative Quality:SDOH Health Related Social Needs: No Data to Display Critical Care Time Critical Care Time Critical Care Time: Yes Total Critical Care Time: 35 Attestation: I spent greater than 35 minutes addressing this patient's acute life threatening illness. This time was spent engaged in actions directly related to the pa tient's care. Failure to initiate these interventions would have likely resulted in clinically significant or life threatening deterioration in the patients condition. PFSH All Active Problems (Updated 12/04/23 @ 15:30 by Mechelle Segundo APRN) Discharge planning issues (Acute) On deep vein thrombosis (DVT) prophylaxis (Acute) Hypertension (Chronic) Encephalopathy (Acute) Community acquired pneumonia (Acute) Severe sepsis (Acute) Hypoxic respiratory failure (Acute) Hypoxia (Acute) Acute confusion (Acute) Pneumonia (Acute) Cognitive impairment (Acute) Change in multiple pigmented skin lesions (Acute) Pain of right thumb (Acute) Hyperplastic colon polyp (Acute) Tubular adenoma of colon (Acute) Serrated adenoma of colon (Acute) Adenomatous polyps (Acute) Tubular adenoma/serrated adenoma in 2019 at [facility] (Acute) Chronic cough (Acute) Sensation of fullness in left ear (Acute) Otorrhea, left ear (Acute) Adhesive capsulitis of left shoulder (Acute) Impingement syndrome of left shoulder (Acute) Tendinitis of long head of biceps brachii of left shoulder (Acute) Left rotator cuff tear (Acute) Heel pain (Acute 08/27/12) Liver function test abnormality (Acute) PLEVA (pityriasis lichenoides et varioliformis acuta) (Acute) Psoriasis (Chronic 12/16/16) Leukoencephalitis, 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 Left ventricular hypertrophy (Chronic 03/14/14) Hyperlipidemia (Chronic) Essential hypertension (Chronic 02/18/13) left ventricular hypertrophy by echo Diabetes mellitus (Chronic 12/12/14) Degenerative lumbar spinal stenosis (Chronic 10/03/16) extruded disc; disc protrusion, lateral recess stenosis 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 Medical History Cerumen impaction Bursitis of left shoulder Otalgia Left shoulder pain Alcohol intake above recommended sensible limits Alcohol intake above recommended sensible limits Abnormal liver function test now resolved Heel pain 08/27/12 Degenerative lumbar disc (09/17/16) L4-5 severe [place]23[place] [facility] [place] SESSILE [place]YP Acute midline thoracic back pain (12/15/17) Surgical History History of colonoscopy (~05/2022) History of eye surgery H/O eye surgery right eye retina Eye surgery Right eye retinal 2006 Extraction of cataract bilat Family History Mother Heart disease CHF Hypercholesterolemia Father No problems noted. Maternal Grandfather No problems noted. Maternal Grandmother No problems noted. Paternal Grandmother No problems noted. Son No problems noted. Son No problems noted. Daughter No problems noted. Sister No problems noted. Social History Smoking/Tobacco Use Status: Never Smoking risk assessment performed?: Yes Alcohol Intake: current Alcohol Intake frequency: holidays/special occasions only Alcohol type: beer and wine Drug use: Occasionally Substance use type: marijuana Adopted: No Caregiver/Support person: No Household members: spouse Housing: house Communication Needs: None Education Level: college Details: 1 year Do you need help understanding health information?: Rarely current occupation: Retired Pets and animals: No Sexually active: Yes Do you think of yourself as: straight/heterosexual Current gender identity: male What is your relationship status?: How often do you talk on the phone with friends or family?: three or more times per week How often do you get together with friends or relatives?: twice per week How often do you attend anabaptism or bahai services?: decline to answer Do you belong to any clubs or organized social groups?: no Panel score (0-1 are the most socially isolated patients): 2 What type of physical activity do you participate in: bicycling, weight lifting and other Details: Cardio Duration: 45-60 minutes/day Christen/Confucianism: Non scientologist Special christen needs: No Seatbelt use: always Drive intox or ride w/intox package delivery driver: No Firearms in home: Yes Do you feel safe at home: Yes Do you feel safe in your relationship?: Yes Victim of physical abuse: No Victim of emotional abuse: No Victim of sexual abuse: No Would you like helpful sources: No Additional Social history: to arrive soon
[2023-12-04 13:22] LABS: Bilirubin Negative (Negative); Blood Trace-intact (Negative); Clarity Clear (Clear); Glucose Negative (Negative); Ketones Negative (Negative); Leukocyte Esterase Negative (Negative); Nitrite Negative (Negative); Urobilinogen 0.2 mg/dL (Up to 0.2)
[2023-12-04 13:22] LABS: Abs Immature Grans 0.02 10^3/uL (0.0-0.06); Absolute Basophil Count 0.01 10^3/uL (0.0-0.2); Absolute Eosinophil Count 0.03 10^3/uL (0.0-0.7); Absolute Lymphocyte Count 0.48 10^3/uL (1.2-3.4); Absolute Monocyte Count 0.26 10^3/uL (0.1-0.8); Absolute Neutrophil Count 4.47 10^3/uL (1.2-6.7); Basophils % 0.2 %; Eosinophils % 0.6 %; HGB 13.9 g/dL (13.5-17.5); Immature Grans % 0.4 %; Lymphocytes % 9.1 %; MCH 31.2 pg (27.0-33.0); MCHC 33.9 % (32.0-36.0); MCV 92 fL (80-95); MPV 9.1 fL (8.0-11.0); Monocytes % 4.9 %; Neutrophils % 84.8 %; Platelet Count 127 10^3/uL (130-400); RBC 4.45 10^6/uL (4.36-5.78); RDW 13.9 % (11.8-14.1); RDW-SD 47.3 fL; WBC 5.27 10^3/uL (4.4-10.8)
[2023-12-04 13:44] LABS: ALT 33 U/L (16-63); AST 23 U/L (15-37); Albumin 3.3 g/dL (3.4-5.0); Alkaline Phosphatase 88 U/L (46-116); Anion Gap 5.2 mmol/L (3-11); BUN 18 mg/dL (7-18); Bilirubin, Total 0.57 mg/dL (0.2-1.0); CO2 30.8 mmol/L (21.0-32.0); CREATININE 1.2 mg/dL (0.70-1.30); Chloride 102 mmol/L (98-107); Estimated GFR 62.29 (mL/min/1.73m2); Glucose 156 mg/dL (74-106); Magnesium 1.6 mg/dL (1.8-2.4); Potassium 3.1 mmol/L (3.5-5.1); Sodium 138 mmol/L (136-145); Total Protein 7.1 g/dL (6.4-8.2); Troponin I < 50 ng/L (< or =60)
[2023-12-04 13:48] LABS: NT-proBNP 658 pg/mL (<300)
[2023-12-04 13:56] LABS: Epithelial Cells Few HPF (Negative); RBC 0-2 HPF (0-2)
[2023-12-04 13:57] LABS: C & S Indicated? No
--- NOTE | 2023-12-04 14:10 | DI.CT_ITS ---
Exam(s) CT HEAD WO EXAM: CT HEAD WO CLINICAL HISTORY: AMS, Fever. TECHNIQUE: Imaging Protocol: Axial computed tomography images with coronal and sagittal reformatted images were created and reviewed COMPARISON: No exams were available for comparison FINDINGS: The exam is limited by streak artifact and motion.. Ventricles and Extra axial spaces: Normal in size and morphology for the patient's age. Hemorrhage: None. Cerebral parenchyma: No evidence of acute infarct or mass. Mild atrophy consistent with the patient' s age. Mild white matter changes of small vessel disease. Midline shift: None. Brainstem/Cerebellum: Normal. Calvarium: Normal. Visualized Paranasal sinuses:Mild mucous retention is sphenoid sinuses. Mild ethmoid sinus mucosal t hickening. Mastoids: Clear. Soft Tissues: Unremarkable. ORBITS: Unremarkable. PITUITARY: Not enlarged. IMPRESSION: No acute intracranial process. RADIATION DOSE DELIVERED: Total DLP DATA REPOSITORY: All CT scans at this facility are submitted to the National Radiology Data Registry (NRDR) Dose Index Registry (DIR) with the [employer] (A[employer]). RADIATION OPTIMIZATION: All CT scans at this facility use at least one of these dose optimization te chniques: automated exposure control; mA and/or kV adjustment per patient size (includes targeted exa ms where dose is matched to clinical indication); or iterative reconstruction.
[2023-12-04 14:11] LABS: COVID-19 PCR Negative (Negative); Influenza A PCR Negative (Negative); Influenza B PCR Negative (Negative); RSV PCR Negative (Negative)
[2023-12-04 14:12] LABS: Source Nasopharynx
[2023-12-04] MEDS: Normal Saline 500 ML IV (14:15)
[2023-12-04] MEDS: methylPREDNISolone SUCC 125 MG VIAL IVP (14:30)
[2023-12-04] MEDS: ACETAMINOPHEN 1,000 MG/100 ML BTL 400 MG IVPB (14:30)
[2023-12-04] MEDS: DOXYCYCLINE 100 MG in Normal Saline 100 ML IVPB (14:30)
[2023-12-04] MEDS: Albuterol/Ipratropium 3 ML UPD VIAL UPD ×2 (14:50→21:42)
--- NOTE | 2023-12-04 14:52 | W.PM.HP.N ---
Date of service: 12/04/23 Time of Service: 14:52 Assessment and Plan Assessment and plan (1) Severe sepsis: Status: Acute Assessment and plan: Tachypnea at 28, HR 98, encephalopathy with source as pneumonia evidenced by chest XR Ceftriaxone and Azithromycin IV O2 supplementation to maintain sat 92 -95%, no history of COPD blood cultures pending MRSA swab Urine legionella, strep pneumo Mycoplasma pneumonia (2) Community acquired pneumonia: Status: Acute Assessment and plan: As above and RT consult IS, Vibra-pep, mucinex, benzonate (3) Hypoxic respiratory failure: Status: Acute Assessment and plan: As above and in point 1 (4) Encephalopathy: Status: Acute Assessment and plan: As above and in point one Fall precautions (5) Hypertension: Status: Chronic Assessment and plan: On home medicines (6) Diabetes mellitus: Status: Chronic Assessment and plan: Gluc AC and HS with sensitive SSI coverage Patient does not appear to get DM II meds at home but might expect a transient elevation in blood glucose (7) On deep vein thrombosis (DVT) prophylaxis: Status: Acute Assessment and plan: On lovenox (8) Discharge planning issues: Status: Acute Assessment and plan: Not determined yet CM to f/u as needed Discussed with Dr. Menjivar History of Present Illness History of Present Illness Chief Complaint: Shortness of breath, confusion, fevers Narrative: This 78-year-old male patient with a past medical history of diabetes not currently medicated, essential hypertension, hyperlipidemia, cognitive impairment and alcohol abuse presented to the ED at [facility] today via EMS for evaluation of shortness of breath, increased confusion, and fevers. Patient was seen at [facility] on 12/02/2023 with recommendation for conservative symptomatic treatment of upper respiratory infection type care. EMS reported finding the patient incontinent of urine, with productive cough and a fever of 102. EMS administer albuterol nebulizer on scene due to sats at 88-89 on room air; the patient does not wear oxygen at home. Emergency room workup was significant for chest x-ray showing bilateral infiltrates without leukocytosis and without lactemia. Platelets were 133, potassium was 3.1, magnesium 1.6, proBNP was 658. Fluvid panel was negative. Blood culture drawn and pending. In the ED the patient was treated with IV doxycycline, methylprednisolone 125 mg IV push, DuoNeb, oral acetaminophen and IV ketorolac. Head CT was negative. The hospitalist service was consulted and the patient was admitted to the medical surgical floor for severe sepsis, community-acquired pneumonia, and hypoxic respiratory failure. VBG was added to the emergency workup once the patient was accepted with pending results. DALTON Rose mentioned a past medical history of B-cell lymphoma will verify if the patient is on any immunosuppressive therapy. When seen in the room, the patient reported not remembering all his medicine as he felt a bit confused and agrees for verification of this medicine with his spouse but aware of not taking any medicine for the management of his diabetes The patient reported some dizziness, no fall, no vision change, no nausea, vomiting or diarrhea but reported serosanguineous urine when waiting too long to void without other symptoms of dysuria. Patient reported stopping drinking about 2 months ago; smoked cannabis in the past but not cigarettes or other tobacco products. 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 The patient would like to be resuscitated and intubated if needed; thus the patient is a full code. Review of Systems All systems reviewed & are unremarkable except as noted in HPI and below PFSH All Active Problems (Updated 12/04/23 @ 16:31 by MIGUE PEGUERO) Discharge planning issues (Acute) On deep vein thrombosis (DVT) prophylaxis (Acute) Hypertension (Chronic) Encephalopathy (Acute) Community acquired pneumonia (Acute) Severe sepsis (Acute) Hypoxic respiratory failure (Acute) Hypoxia (Acute) Acute confusion (Acute) Pneumonia (Acute) Cognitive impairment (Acute) Change in multiple pigmented skin lesions (Acute) Pain of right thumb (Acute) Hyperplastic colon polyp (Acute) Tubular adenoma of colon (Acute) Serrated adenoma of colon (Acute) Adenomatous polyps (Acute) Tubular adenoma/serrated adenoma in 2019 at [facility] (Acute) Chronic cough (Acute) Sensation of fullness in left ear (Acute) Otorrhea, left ear (Acute) Adhesive capsulitis of left shoulder (Acute) Impingement syndrome of left shoulder (Acute) Tendinitis of long head of biceps brachii of left shoulder (Acute) Left rotator cuff tear (Acute) Heel pain (Acute 08/27/12) Liver function test abnormality (Acute) PLEVA (pityriasis lichenoides et varioliformis acuta) (Acute) Psoriasis (Chronic 12/16/16) Leukoencephalitis, 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 Left ventricular hypertrophy (Chronic 03/14/14) Hyperlipidemia (Chronic) Essential hypertension (Chronic 02/18/13) left ventricular hypertrophy by echo Diabetes mellitus (Chronic 12/12/14) Degenerative lumbar spinal stenosis (Chronic 10/03/16) extruded disc; disc protrusion, lateral recess stenosis 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 Medical History Cerumen impaction Bursitis of left shoulder Otalgia Left shoulder pain Alcohol intake above recommended sensible limits Alcohol intake above recommended sensible limits Abnormal liver function test now resolved Heel pain 08/27/12 Degenerative lumbar disc (09/17/16) L4-5 severe Colon polyp 10/23/15 [facility] [place]- 4 MM SESSILE POLYP Acute midline thoracic back pain (12/15/17) Surgical History History of colonoscopy (~05/2022) History of eye surgery H/O eye surgery right eye retina Eye surgery Right eye retinal 2006 Extraction of cataract bilat Family History Mother Heart disease CHF Hypercholesterolemia Father No problems noted. Maternal Grandfather No problems noted. Maternal Grandmother No problems noted. Paternal Grandmother No problems noted. Son No problems noted. Son No problems noted. Daughter No problems noted. Sister No problems noted. Social History Smoking/Tobacco Use Status: Never Smoking risk assessment performed?: Yes Alcohol Intake: current Alcohol Intake frequency: holidays/special occasions only Alcohol type: beer and wine Drug use: Occasionally Substance use type: marijuana Adopted: No Caregiver/Support person: No Household members: spouse Housing: house Communication Needs: None Education Level: college Details: 1 year Do you need help understanding health information?: Rarely current occupation: Retired Pets and animals: No Sexually active: Yes Do you think of yourself as: straight/heterosexual Current gender identity: male What is your relationship status?: How often do you talk on the phone with friends or family?: three or more times per week How often do you get together with friends or relatives?: twice per week How often do you attend methodist or latter-day services?: decline to answer Do you belong to any clubs or organized social groups?: no Panel score (0-1 are the most socially isolated patients): 2 What type of physical activity do you participate in: bicycling, weight lifting and other Details: Cardio Duration: 45-60 minutes/day Christen/Samaritan: Non episcopal Special christen needs: No Seatbelt use: always Drive intox or ride w/intox courier delivery driver: No Firearms in home: Yes Do you feel safe at home: Yes Do you feel safe in your relationship?: Yes Victim of physical abuse: No Victim of emotional abuse: No Victim of sexual abuse: No Would you like helpful sources: No Additional Social history: to arrive soon Meds Allergies and Home Medications Allergies Allergy/AdvReac Type Severity Reaction Status Date / Time No Known Allergies Allergy Verified 12/04/23 12:32 Home Medications ?Medication ?Instructions ?Recorded ?Confirmed ?Type magnesium oxide 1 tab PO DAILY 06/16/14 12/04/23 History triamcinolone acetonide 0.1 % 1 applic topical BID #30 grams 11/25/18 12/04/23 Rx topical cream sildenafil 100 mg tablet 100 mg PO DAILY PRN sexual 08/28/21 12/04/23 Rx activity #30 tabs psyllium husk 0.4 gram capsule 0.4 g PO DAILY 04/01/22 12/04/23 History (Metamucil) amlodipine 5 mg tablet 5 mg PO DAILY #90 tabs 05/27/23 12/04/23 Rx betamethasone valerate 0.1 % 1 applic topical BID PRN rash #15 05/27/23 12/04/23 Rx topical cream grams clotrimazole 1 % topical cream 1 applic topical BID PRN rash #30 05/27/23 12/04/23 Rx grams hydrochlorothiazide 25 mg tablet 12.5 mg (1/2 x 25 mg) PO DAILY #90 05/27/23 12/04/23 Rx tabs lisinopril 40 mg tablet 40 mg PO DAILY #90 tabs 05/27/23 12/04/23 Rx potassium chloride 20 mEq 20 meq PO BID #180 tabs 05/27/23 12/04/23 Rx tablet,extended release sertraline 50 mg tablet 50 mg PO DAILY #90 tabs 07/03/23 12/04/23 Rx aspirin 81 mg tablet,delayed 81 mg PO DAILY 08/26/23 12/04/23 History release (Adult Aspirin Regimen) atorvastatin 20 mg tablet 10 mg PO DAILY 12/02/23 12/04/23 History benzonatate 100 mg capsule 100 mg PO TID PRN cough 7 days #20 12/02/23 12/04/23 Rx caps Exam Narrative Exam Narrative: Constitutional The patient is without acute distress HENMT: Facial structures with normal appearance Eyes: Well aligned,Neuro:alert and oriented X2 . No neurological focal deficit Chest:Chest is symmetrical and normal appearance Resp: crackle left base > right base, On 3 l of oxygen fro sat of 93% Cardio: regular rhythm, S1, S2, no murmur, bilateral radial and dorsalis pedis pulses are positive GI: Abdomen is not distended, soft and non tender, bowel sounds are present : Negative Costovertebral angle tenderness Back/spine/Pelvis: Tenderness, normal alignment Integumentary: keratosis like lesions to back Extremities: strength 5/5 to bilateral lower and upper extremities Psych: RASS 0, congruent mood and normal affect. Results Labs 12/04/23 13:10 12/04/23 13:10 Labs: Laboratory Results - last 24 hr 12/04/23 12/04/23 12/04/23 12:44 12:52 13:10 WBC 5.27 RBC 4.45 Hgb 13.9 Hct 41.0 MCV 92 MCH 31.2 MCHC 33.9 RDW 13.9 Plt Count 127 L MPV 9.1 Immature Gran % 0.4 Neutrophils % 84.8 Lymphocytes % 9.1 Monocytes % 4.9 Eosinophils % 0.6 Basophils % 0.2 Nucleated RBC % 0.0 Absolute Neutrophils 4.47 Absolute Lymphocytes 0.48 L Absolute Monocytes 0.26 Absolute Eosinophils 0.03 Absolute Basophils 0.01 VBG Lactate 1.0 Sodium 138 Potassium 3.1 L Chloride 102 Carbon Dioxide 30.8 Anion Gap 5.2 BUN 18 Creatinine 1.2 Est GFR (CKD-EPI 2020) 62.29 Glucose 156 H Calcium 9.0 Magnesium 1.6 L Total Bilirubin 0.57 AST 23 ALT 33 Alkaline Phosphatase 88 Troponin I < 50 NT-Pro-B Natriuret Pep 658 H Total Protein 7.1 Albumin 3.3 L Urine Color Yellow Urine Clarity Clear Urine pH 5.0 Ur Specific [place] 1.020 Urine Protein Negative Urine Ketones Negative Urine Blood Trace-intact H Urine Nitrite Negative Urine Bilirubin Negative Urine Urobilinogen 0.2 Ur Leukocyte Esterase Negative Urine RBC 0-2 Urine WBC Not Applicable Ur Epithelial Cells Few Urine Crystals Not Applicable Urine Bacteria Not Applicable Urine Mucus Not Applicable Ur Culture Indicated? No Urine Glucose Negative COVID-19 Source Nasopharynx SARS-CoV-2 (PCR) Negative Influenza Type A (PCR) Negative Influenza Type B (PCR) Negative RSV (PCR) Negative Last Vital Signs Temp 39.3 C H 12/04/23 12:39 Pulse 92 H 12/04/23 13:16 Resp 26 H 12/04/23 13:20 BP 157/64 H 12/04/23 13:16 Pulse Ox 94 12/04/23 13:20 Time Spent Time spent with Patient: >75 minutes Time was spent: preparing to see the patient(eg.review tests), obtaining and/or reviewing separately otained hiistory, ordering medications,tests, procedures, referring, communicating with other health body care manager, indepentently interpreting results, counseling the patient and care coordination
[2023-12-04 15:01] LABS: Lab Add On Test DONE
[2023-12-04 15:04] LABS: pH (Venous) 7.43 (7.31-7.41)
[2023-12-04 15:05] LABS: BE (Venous) 7 mmol/L (-2-3); HCO3 (Venous) 32 mmol/L (23-28); O2 Sat (Venous) 55 %; TCO2 (Venous) 29 mmol/L (24-29); pCO2 (Venous) 48 mmHg (41-51); pO2 (Venous) 28 mmHg
--- NOTE | 2023-12-04 15:15 | RT.EKG_ITS ---
APPROVED REPORT Exam: Resting ECG Reason for Exam: Repeat EKG Patient Location: E HR:82 bpm ECG Measurements Heart Rate 82 AXIS OK 237 P 30 QRSd 144 QRS -71 QT 402 T 74 QTc 469 Conclusion Sinus rhythm...normal P axis, V-rate 60- 99 Atrial premature complexes...SV complexes w/ short R-R intvls Prolonged OK interval...OK >220, V-rate 50- 90 Right bundle branch block...QRSd>120, terminal axis(90,270) Inferior infarct, old...Q >35mS, II III aVF
[2023-12-04 16:06] LABS: Troponin I < 50 ng/L (< or =60)
--- NOTE | 2023-12-04 16:27 | W.PC.ACHO ---
Registration Status: Primary Language: Preferred Language: ED Information & Data Chief Complaint Fever 12/04/23 12:38 Chief Complaint Fever 12/04/23 12:33 Other Complaint RespSymp 12/04/23 12:33 Triage Note pt with recent URI seen at 12/04/23 12:33 urgent care 2 days ago, COVID/strep neg, pt arrives febrile 102.8 with O2 sats in mid 80's, received NEB TPA, placed on 2L via NC, resp , loose cough with coarse BS, pt confused at times, restless with twitching noted, to arrive soon. Medical / Surgical History (Last Reviewed 12/04/23 @ 12:53 by Alia Rose NP) Cerumen impaction Bursitis of left shoulder Otalgia Left shoulder pain Alcohol intake above recommended sensible limits Alcohol intake above recommended sensible limits Abnormal liver function test Heel pain Degenerative lumbar disc (09/17/16) Colon polyp Acute midline thoracic back pain (12/15/17) (Last Reviewed 12/04/23 @ 12:53 by Alia Rose NP) History of colonoscopy (~05/2022) History of eye surgery H/O eye surgery Eye surgery Extraction of cataract Most Recent Vital Signs Temperature 39.4 C H 12/04/23 13:40 Temperature Source Oral 12/04/23 12:39 Pulse 92 H 12/04/23 13:16 Pulse 91 H 12/04/23 15:50 Respiratory Rate 16 12/04/23 15:50 Respiratory Effort Incrsd Work of Breathing 12/04/23 12:38 Blood Pressure 157/64 H 12/04/23 13:16 Blood Pressure Mean 100 12/04/23 13:16 Blood Pressure Position Supine 12/04/23 12:33 Pulse Oximetry 91 L 12/04/23 15:40 Oxygen Delivery Method Nasal Cannula 12/04/23 12:33 Oxygen Flow Rate 2 12/04/23 12:33 Pain Level 8 12/04/23 12:39 Comment generalized body aches 12/04/23 12:33 Comment 3l 12/04/23 15:30 Allergies No Known Allergies Allergy (Verified 12/04/23 12:32) Precautions Isolation PUI 12/04/23 12:38 IV IV Catheter Type [Left Wrist] Peripheral IV IV Catheter Type [Antecubital] Peripheral IV IV Catheter Gauge [Left Wrist] 20 IV Catheter Gauge [Antecubital 18 ] Diagnostics 12/04/23 12/04/23 12/04/23 Range/Units 19:06 16:06 15:42 WBC (4.4-10.8) 10^3/uL RBC (4.36-5.78) 10^6/uL Hgb (13.5-17.5) g/dL Hct (40.0-50.0) % MCV (80-95) fL MCH (27.0-33.0) pg MCHC (32.0-36.0) % RDW (11.8-14.1) % Plt Count (130-400) 10^3/uL MPV (8.0-11.0) fL Immature Gran % % Neutrophils % % Lymphocytes % % Monocytes % % Eosinophils % % Basophils % % Nucleated RBC % (0.0-0.3) % Absolute Neutrophils (1.2-6.7) 10^3/uL Absolute Lymphocytes (1.2-3.4) 10^3/uL Absolute Monocytes (0.1-0.8) 10^3/uL Absolute Eosinophils (0.0-0.7) 10^3/uL Absolute Basophils (0.0-0.2) 10^3/uL VBG pH (7.31-7.41) VBG pCO2 (41-51) mmHg VBG pO2 mmHg VBG HCO3 (23-28) mmol/L VBG Total CO2 (24-29) mmol/L VBG O2 Saturation % VBG Base Excess (-2-3) mmol/L VBG Lactate Cancelled Cancelled (0.6-1.4) mmol/L Sodium (136-145) mmol/L Potassium (3.5-5.1) mmol/L Chloride (98-107) mmol/L Carbon Dioxide (21.0-32.0) mmol/L Anion Gap (3-11) mmol/L BUN (7-18) mg/dL Creatinine (0.70-1.30) mg/dL Est GFR (CKD-EPI 2020) (mL/min/1.73m2) Glucose (74-106) mg/dL Calcium (8.5-10.1) mg/dL Magnesium (1.8-2.4) mg/dL Total Bilirubin (0.2-1.0) mg/dL AST (15-37) U/L ALT (16-63) U/L Alkaline Phosphatase (46-116) U/L Troponin I < 50 (< or =60) ng/L NT-Pro-B Natriuret Pep (<300) pg/mL Total Protein (6.4-8.2) g/dL Albumin (3.4-5.0) g/dL Urine Color (Yellow) Urine Clarity (Clear) Urine pH (5-8) Ur Specific [place] (1.005-1.025) Urine Protein (Neg-Trace) mg/dL Urine Ketones (Negative) mg/dL Urine Blood (Negative) Urine Nitrite (Negative) Urine Bilirubin (Negative) Urine Urobilinogen (Up to 0.2) mg/dL Ur Leukocyte Esterase (Negative) Urine RBC (0-2) HPF Urine WBC Ur Epithelial Cells (Negative) HPF Urine Crystals Urine Bacteria Urine Mucus Ur Culture Indicated? Urine Glucose (Negative) mg/dL COVID-19 Source SARS-CoV-2 (PCR) (Negative) Influenza Type A (PCR) (Negative) Influenza Type B (PCR) (Negative) RSV (PCR) (Negative) Add-On Test Request 12/04/23 12/04/23 12/04/23 Range/Units 15:01 13:10 12:52 WBC 5.27 (4.4-10.8) 10^3/uL RBC 4.45 (4.36-5.78) 10^6/uL Hgb 13.9 (13.5-17.5) g/dL Hct 41.0 (40.0-50.0) % MCV 92 (80-95) fL MCH 31.2 (27.0-33.0) pg MCHC 33.9 (32.0-36.0) % RDW 13.9 (11.8-14.1) % Plt Count 127 L (130-400) 10^3/uL MPV 9.1 (8.0-11.0) fL Immature Gran % 0.4 % Neutrophils % 84.8 % Lymphocytes % 9.1 % Monocytes % 4.9 % Eosinophils % 0.6 % Basophils % 0.2 % Nucleated RBC % 0.0 (0.0-0.3) % Absolute Neutrophils 4.47 (1.2-6.7) 10^3/uL Absolute Lymphocytes 0.48 L (1.2-3.4) 10^3/uL Absolute Monocytes 0.26 (0.1-0.8) 10^3/uL Absolute Eosinophils 0.03 (0.0-0.7) 10^3/uL Absolute Basophils 0.01 (0.0-0.2) 10^3/uL VBG pH 7.43 H (7.31-7.41) VBG pCO2 48 (41-51) mmHg VBG pO2 28 mmHg VBG HCO3 32 H (23-28) mmol/L VBG Total CO2 29 (24-29) mmol/L VBG O2 Saturation 55 % VBG Base Excess 7 H (-2-3) mmol/L VBG Lactate 1.0 (0.6-1.4) mmol/L Sodium 138 (136-145) mmol/L Potassium 3.1 L (3.5-5.1) mmol/L Chloride 102 (98-107) mmol/L Carbon Dioxide 30.8 (21.0-32.0) mmol/L Anion Gap 5.2 (3-11) mmol/L BUN 18 (7-18) mg/dL Creatinine 1.2 (0.70-1.30) mg/dL Est GFR (CKD-EPI 2020) 62.29 (mL/min/1.73m2) Glucose 156 H (74-106) mg/dL Calcium 9.0 (8.5-10.1) mg/dL Magnesium 1.6 L (1.8-2.4) mg/dL Total Bilirubin 0.57 (0.2-1.0) mg/dL AST 23 (15-37) U/L ALT 33 (16-63) U/L Alkaline Phosphatase 88 (46-116) U/L Troponin I < 50 (< or =60) ng/L NT-Pro-B Natriuret Pep 658 H (<300) pg/mL Total Protein 7.1 (6.4-8.2) g/dL Albumin 3.3 L (3.4-5.0) g/dL Urine Color (Yellow) Urine Clarity (Clear) Urine pH (5-8) Ur Specific [place] (1.005-1.025) Urine Protein (Neg-Trace) mg/dL Urine Ketones (Negative) mg/dL Urine Blood (Negative) Urine Nitrite (Negative) Urine Bilirubin (Negative) Urine Urobilinogen (Up to 0.2) mg/dL Ur Leukocyte Esterase (Negative) Urine RBC (0-2) HPF Urine WBC Ur Epithelial Cells (Negative) HPF Urine Crystals Urine Bacteria Urine Mucus Ur Culture Indicated? Urine Glucose (Negative) mg/dL COVID-19 Source Nasopharynx SARS-CoV-2 (PCR) Negative (Negative) Influenza Type A (PCR) Negative (Negative) Influenza Type B (PCR) Negative (Negative) RSV (PCR) Negative (Negative) Add-On Test Request DONE 12/04/23 Range/Units 12:44 WBC (4.4-10.8) 10^3/uL RBC (4.36-5.78) 10^6/uL Hgb (13.5-17.5) g/dL Hct (40.0-50.0) % MCV (80-95) fL MCH (27.0-33.0) pg MCHC (32.0-36.0) % RDW (11.8-14.1) % Plt Count (130-400) 10^3/uL MPV (8.0-11.0) fL Immature Gran % % Neutrophils % % Lymphocytes % % Monocytes % % Eosinophils % % Basophils % % Nucleated RBC % (0.0-0.3) % Absolute Neutrophils (1.2-6.7) 10^3/uL Absolute Lymphocytes (1.2-3.4) 10^3/uL Absolute Monocytes (0.1-0.8) 10^3/uL Absolute Eosinophils (0.0-0.7) 10^3/uL Absolute Basophils (0.0-0.2) 10^3/uL VBG pH (7.31-7.41) VBG pCO2 (41-51) mmHg VBG pO2 mmHg VBG HCO3 (23-28) mmol/L VBG Total CO2 (24-29) mmol/L VBG O2 Saturation % VBG Base Excess (-2-3) mmol/L VBG Lactate (0.6-1.4) mmol/L Sodium (136-145) mmol/L Potassium (3.5-5.1) mmol/L Chloride (98-107) mmol/L Carbon Dioxide (21.0-32.0) mmol/L Anion Gap (3-11) mmol/L BUN (7-18) mg/dL Creatinine (0.70-1.30) mg/dL Est GFR (CKD-EPI 2020) (mL/min/1.73m2) Glucose (74-106) mg/dL Calcium (8.5-10.1) mg/dL Magnesium (1.8-2.4) mg/dL Total Bilirubin (0.2-1.0) mg/dL AST (15-37) U/L ALT (16-63) U/L Alkaline Phosphatase (46-116) U/L Troponin I (< or =60) ng/L NT-Pro-B Natriuret Pep (<300) pg/mL Total Protein (6.4-8.2) g/dL Albumin (3.4-5.0) g/dL Urine Color Yellow (Yellow) Urine Clarity Clear (Clear) Urine pH 5.0 (5-8) Ur Specific [place] 1.020 (1.005-1.025) Urine Protein Negative (Neg-Trace) mg/dL Urine Ketones Negative (Negative) mg/dL Urine Blood Trace-intact H (Negative) Urine Nitrite Negative (Negative) Urine Bilirubin Negative (Negative) Urine Urobilinogen 0.2 (Up to 0.2) mg/dL Ur Leukocyte Esterase Negative (Negative) Urine RBC 0-2 (0-2) HPF Urine WBC Not Applicable Ur Epithelial Cells Few (Negative) HPF Urine Crystals Not Applicable Urine Bacteria Not Applicable Urine Mucus Not Applicable Ur Culture Indicated? No Urine Glucose Negative (Negative) mg/dL COVID-19 Source SARS-CoV-2 (PCR) (Negative) Influenza Type A (PCR) (Negative) Influenza Type B (PCR) (Negative) RSV (PCR) (Negative) Add-On Test Request 12/04/23 13:15 Blood Culture - Pending Blood 12/04/23 13:10 Blood Culture - Pending Blood Intake and Output - 24 Hour Total 12/04/23 12:15 thru 12/04/23 15:55 Intake Total 700 Balance 700 Weight 98 kg Intake: IV 700 Falls Risk Assessment History of Falls No History 12/04/23 12:41 Contributing Factors No Factors 12/04/23 12:41 Ambulatory Aids Independent 12/04/23 12:41 Tubes/Lines None 12/04/23 12:41 Gait Evaluation No gait disturbance 12/04/23 12:41 Cognition No cognitive impairment 12/04/23 12:41 Fall Total Score 0 12/04/23 12:41 Level of Risk Standard/Low Risk 12/04/23 12:41 Problems (Last Reviewed 12/04/23 @ 12:53 by Alia Rose NP) Discharge planning issues (Acute) On deep vein thrombosis (DVT) prophylaxis (Acute) Hypertension (Chronic) Encephalopathy (Acute) Community acquired pneumonia (Acute) Severe sepsis (Acute) Hypoxic respiratory failure (Acute) Hypoxia (Acute) Acute confusion (Acute) Pneumonia (Acute) Diabetes mellitus (Chronic 12/12/14) v v v v v v v v v Sending and/or Receiving Nurses: Please use comment section below to note any information pertinent to the patient hand-off not included above. Information / Comments: Pt is a 78y M NKA. Pt seen at urgent care x2 days ago. went out to run errands and called pt who was noted to be extremely confused. ED RN reports T of 103 upon arrival down trend to 102.8 after APAP. Pt is alert to self only at this time. Incontinent of urine multiple times in ED. Pt is restless. FluVid -. Pt is on 2L NC which is new for him. Pt will be admitted to room 209 for safety. Report received from: Marleny Chaparro
[2023-12-04] MEDS: POTASSIUM CHLORIDE 20 MEQ/100 ML BAG 50 MEQ IVINF (17:32)
[2023-12-04] MEDS: AZITHROMYCIN 500 MG in Normal Saline 250 ML 250 MG IVPB (17:34)
[2023-12-04] MEDS: Albuterol 2.5 MG/3 ML INH SOLN VIAL UPD (17:55)
--- NOTE | 2023-12-04 18:17 | RESPIRATORY ---
RT Initial Evalutation/Assessment Start: 12/04/23 16:31 Freq: .q shift and prn Status: Active Protocol: Document 12/04/23 17:39 RT.HOSM (Rec: 12/04/23 17:54 RT.HOSM [id number]) RT Assessment Smoking History Smoking/Tobacco Use Status Never OXYGEN HISTORY: CPAP Settings N/A BIPAP Settings N/A Trilogy/AVAPS Settings N/A DME/Compliance DME N/A Current Respiratory Symptoms Current Respiratory Symptoms Cough,Sputum production Activity Activity Level Pt is mod active, does his firewood and yardwork Respiratory Breath Sounds Breath Sounds Faint wheezing or rhonci, decreased sounds throughout Response Mild response,subjective improvement Pulse Rate <100 Respiratory Rate <18 Shortness of Breath None Respiratory Therapy Score Total 3 Assessment and Plan RT Treatment Protocol Bronchodilator Aerosol Therapy Protocol,Bronchial Hygiene Therapy Protocol Note Pt currently on 2L SPO2 92% Bibasilar fine crackles, more on the R side posterior. Slight wheeze anterior EDGAR Pt states significant second hand smoke exposure Pt states he did smoke marijuana but not cigarettes Pt taking a cycle of around 3 shallow breaths and then 1 deep breath, around 18 deep breaths per minute
[2023-12-04] MEDS: cefTRIAXone 2 GM/50 ML BAG IVPB (18:34)
[2023-12-04] MEDS: guaiFENesin 600 MG TABCR PO ×2 (18:35→21:45)
[2023-12-04] MEDS: Enoxaparin 40 MG/0.4 ML SYR SC (18:35)
[2023-12-04] MEDS: Ibuprofen 600 MG TAB PO (21:42)
[2023-12-04] MEDS: Potassium Chloride 20 MEQ TABCR PO (21:43)
[2023-12-04] MEDS: Benzonatate 100 MG CAP PO (21:43)
[2023-12-04] MEDS: MAGNESIUM SULFATE 2 GM/50 ML BAG IVINF (22:46)
[2023-12-04] MEDS: Normal Saline Flush 10 ML SYR IVP (22:48)
[2023-12-05] VITALS (15 sets, daily range): BP systolic 106–138; BP diastolic 61–86; PULSE 58–93; RESP 2–22; TEMP 36.2–37; O2SAT 92–96
[2023-12-05 06:52] LABS: Abs Immature Grans 0.17 10^3/uL (0.0-0.06); HCT 39.1 % (40.0-50.0); HGB 13.5 g/dL (13.5-17.5); MCH 31.3 pg (27.0-33.0); MCHC 34.5 % (32.0-36.0); MCV 91 fL (80-95); MPV 9.8 fL (8.0-11.0); Platelet Count 123 10^3/uL (130-400); RBC 4.31 10^6/uL (4.36-5.78); RDW 13.9 % (11.8-14.1); RDW-SD 46.8 fL; WBC 11.16 10^3/uL (4.4-10.8)
[2023-12-05 07:01] LABS: Anion Gap 8.3 mmol/L (3-11); BUN 22 mg/dL (7-18); CO2 27.7 mmol/L (21.0-32.0); CREATININE 1.1 mg/dL (0.70-1.30); Calcium 9.2 mg/dL (8.5-10.1); Chloride 102 mmol/L (98-107); Estimated GFR 69.14 (mL/min/1.73m2); Glucose 256 mg/dL (74-106); Magnesium 2.5 mg/dL (1.8-2.4); Sodium 138 mmol/L (136-145)
[2023-12-05 07:25] LABS: Absolute Lymphocyte Count 0.78 10^3/uL (1.2-3.4); Absolute Monocyte Count 0.45 10^3/uL (0.1-0.8); Absolute Neutrophil Count 9.71 10^3/uL (1.2-6.7); Bands % 3 %
[2023-12-05 07:26] LABS: Diff Comment Manual Differential; Metamyelocytes % 1; RBC Morphology Normal
[2023-12-05] MEDS: Albuterol/Ipratropium 3 ML UPD VIAL UPD ×3 (08:13→20:10)
--- NOTE | 2023-12-05 09:07 | PDOC.CMIN ---
Date of service: 12/05/23 Time of Service: 09:07 Care Management Initial Assmt Initial Assessment Reason for Hospitalization: severe sepsis/ pneumonia Functional Status/Living Situation Patient Presentation: Franc was sitting up in bed when CM met with him. He was very pleasant and easily engaged with CM. 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 Franc is to a nurse and has 2 children. His son lives in [place] and his daughter is in [facility].. He has 2 grandchildren, all boys, ranging in age from 1 to 12. Franc is independent and does not receive any community services. Town of Residence: [place], [place] Resides with: Spouse (Anna) Significant Other/Family: Local (daughter in [facility], son in [place]) Employment Status: Retired Instrumental Activities of Daily Living (ADLs): Independent Physical Functioning/Mobility Assistive Device: none Advance Directives Advance Directives: Do you have an Advance Directive: Y 12/16/17 13:15 AD On File at [facility]: N 12/05/23 08:44 Date Asked 12/04/23 12/04/23 13:24 AD Date Reviewed COLST On File at [facility] COLST Date Scanned Code Status Resuscitation Status Full Code Insurance Coverage/Financial Issues Insurance: Medicare BC/ Care Team Visit Care Team Role Provider Type Reena Grove MD, ARTEMIO Primary Care Provider [facility] Joy Ellis RDN, [facility] Other Providers [employer] Leela Tobias Other Providers [employer] Rigoberto Simmons RDN Other Providers MENDER KNIT GOODSROSSANA Rose NP Emergency Provider NURSE PRACTITIONER Juvencio Menjivar MD Admit Provider [facility] STAFF PHYSICIAN Attending Provider Discharge Potential Discharge Needs: PCP F/U Appt Anticipated Barriers to Discharge: Medical Status Patient/Family Education Needs: Review discharge instructions, discuss Ask Me Three Transportation: Private vehicle Plan: Anticipate Franc will be discharged home, possibly with new home health services, when medically cleared. He will follow up with his PCP and plan of care and transport with family. CM will continue to support discharge planning needs. PFSH All Active Problems (Updated 12/04/23 @ 16:31 by MIGUE PEGUERO) Discharge planning issues (Acute) On deep vein thrombosis (DVT) prophylaxis (Acute) Hypertension (Chronic) Encephalopathy (Acute) Community acquired pneumonia (Acute) Severe sepsis (Acute) Hypoxic respiratory failure (Acute) Hypoxia (Acute) Acute confusion (Acute) Pneumonia (Acute) Cognitive impairment (Acute) Change in multiple pigmented skin lesions (Acute) Pain of right thumb (Acute) Hyperplastic colon polyp (Acute) Tubular adenoma of colon (Acute) Serrated adenoma of colon (Acute) Adenomatous polyps (Acute) Tubular adenoma/serrated adenoma in 2019 at Hematur[facility] (Acute) Chronic cough (Acute) Sensation of fullness in left ear (Acute) Otorrhea, left ear (Acute) Adhesive capsulitis of left shoulder (Acute) Impingement syndrome of left shoulder (Acute) Tendinitis of long head of biceps brachii of left shoulder (Acute) Left rotator cuff tear (Acute) Heel pain (Acute 08/27/12) Liver function test abnormality (Acute) PLEVA (pityriasis lichenoides et varioliformis acuta) (Acute) Psoriasis (Chronic 12/16/16) Leukoencephalitis, 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 Left ventricular hypertrophy (Chronic 03/14/14) Hyperlipidemia (Chronic) Essential hypertension (Chronic 02/18/13) left ventricular hypertrophy by [place] Diabetes mellitus (Chronic 12/12/14) Degenerative lumbar spinal stenosis (Chronic 10/03/16) extruded disc; disc protrusion, lateral recess stenosis 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 Medical History Cerumen impaction Bursitis of left shoulder Otalgia Left shoulder pain Alcohol intake above recommended sensible limits Alcohol intake above recommended sensible limits Abnormal liver function test now resolved Heel pain 08/27/12 Degenerative lumbar disc (09/17/16) L4-5 severe Colon polyp 10/23/15 [facility]- 4 MM SESSILE POLYP Acute midline thoracic back pain (12/15/17) Surgical History History of colonoscopy (~05/2022) History of eye surgery H/O eye surgery right eye retina Eye surgery Right eye retinal 2006 Extraction of cataract bilat Family History Mother Heart disease CHF Hypercholesterolemia Father No problems noted. Maternal Grandfather No problems noted. Maternal Grandmother No problems noted. Paternal Grandmother No problems noted. Son No problems noted. Son No problems noted. Daughter No problems noted. Sister No problems noted. Social History Smoking/Tobacco Use Status: Never Smoking risk assessment performed?: Yes Alcohol Intake: current Alcohol Intake frequency: holidays/special occasions only Alcohol type: beer and wine Drug use: Occasionally Substance use type: marijuana Adopted: No Caregiver/Support person: No Household members: spouse Housing: house Communication Needs: None Education Level: college Details: 1 year Do you need help understanding health information?: Rarely current occupation: Retired Pets and animals: No Sexually active: Yes Do you think of yourself as: straight/heterosexual Current gender identity: male What is your relationship status?: How often do you talk on the phone with friends or family?: three or more times per week How often do you get together with friends or relatives?: twice per week How often do you attend gnosticist or tenriism services?: decline to answer Do you belong to any clubs or organized social groups?: no Panel score (0-1 are the most socially isolated patients): 2 What type of physical activity do you participate in: bicycling, weight lifting and other Details: Cardio Duration: 45-60 minutes/day Christen/Gnosticism: Non orthodox Special christen needs: No Seatbelt use: always Drive intox or ride w/intox escort car driver: No Firearms in home: Yes Do you feel safe at home: Yes Do you feel safe in your relationship?: Yes Victim of physical abuse: No Victim of emotional abuse: No Victim of sexual abuse: No Would you like helpful sources: No Additional Social history: to arrive soon SDOH(Care Management) Screening Will the Patient Participate in the Screening?: Yes Do you worry about having a steady place to live?: no In the past 12 months, have you had to go without electric, gas, oil or water in your home?: no Have you or anyone in your house had to go without enough food to eat?: no Has lack of transportation kept you from medical appointments or from doing things needed for daily living?: no Has anyone in your support network made you feel unsafe for any reason?: no
[2023-12-05] MEDS: Insulin Aspart 300 UNITS/3 ML PEN SC ×2 (09:23→12:15)
[2023-12-05] MEDS: amLODIPine 5 MG TAB PO (09:26)
[2023-12-05] MEDS: Magnesium Oxide 400 MG TAB 200 MG PO (09:26)
[2023-12-05] MEDS: hydroCHLOROthiazide 12.5 MG TAB PO (09:26)
[2023-12-05] MEDS: Lisinopril 20 MG TAB 40 MG PO (09:26)
[2023-12-05] MEDS: Atorvastatin 20 MG TAB 10 MG PO (09:27)
[2023-12-05] MEDS: Potassium Chloride 20 MEQ TABCR PO ×2 (09:27→19:51)
[2023-12-05] MEDS: guaiFENesin 600 MG TABCR PO ×2 (09:27→19:51)
[2023-12-05] MEDS: Sertraline 50 MG TAB PO (09:27)
[2023-12-05] MEDS: Aspirin E.C. 81 MG TABEC PO (09:27)
[2023-12-05] MEDS: Normal Saline Flush 10 ML SYR IVP ×2 (09:28→19:51)
--- NOTE | 2023-12-05 10:21 | PGE_ITS ---
Date of Service Date of service: 12/05/23 Time of Service: 10:21 Assessment and Plan Assessment and plan (1) Severe sepsis: Status: Acute Assessment and plan: Tachypnea at 28, HR 98, encephalopathy with source as pneumonia evidenced by chest XR WBC at 11 this AM; 5.27 on 12/03 Continue Ceftriaxone and Azithromycin IV No further O2 supplementation required this AM blood cultures no growth 24 hours MRSA swab reordered at 10:26 and negative this PM Urine legionella, strep pneumo on 12/03 pending at 15:29 today Mycoplasma pneumonia ordered on 12/03 pending at 15:29 today (2) Community acquired pneumonia: Status: Acute Assessment and plan: As above and RT consulted Continue IS, Vibra-pep, mucinex, benzonate RT mentioned compensated VGB but patient denies Hx of COPD; cannabis only smoker (3) Hypoxic respiratory failure: Status: Acute Assessment and plan: As above and in point 1 (4) Encephalopathy: Status: Acute Assessment and plan: As above and in point one improving Fall precautions (5) Hypertension: Status: Chronic Assessment and plan: On home medicines (6) Diabetes mellitus: Status: Chronic Assessment and plan: Gluc AC and HS with moderate SSI coverage Patient does not appear to get DM II meds at home but might expect a transient elevation in blood glucose (7) On deep vein thrombosis (DVT) prophylaxis: Status: Acute Assessment and plan: On lovenox (8) Discharge planning issues: Status: Acute Assessment and plan: Not determined yet CM to f/u as needed Home on ora antibiotics when stable if negative blood cultures Discussed with Dr. Schmidt Subjective Subjective Patient reports: no new complaints, feels better, tolerating liquids well, tolerating a regular diet, voiding w/o difficulty, flatus and bowel movement; denies diarrhea, blood in stool, nausea, vomiting, shortness of breath or fever Exam Narrative Exam Narrative: Constitutional The patient is without acute distress Neuro:alert and oriented X3 Resp: clear lungs Cardio: regular rhythm, S1, S2, no murmur, trace edema to feet GI: Abdomen is not distended, soft and non tender, bowel sounds are present Extremities: strength 5/5 to bilateral lower and upper extremities Psych: RASS 0, congruent mood and normal affect. Objective Last Vital Signs Temp 36.6 C 12/05/23 07:16 Pulse 81 12/05/23 08:20 Resp 17 07/19/24 08:20 BP 119/70 12/05/23 09:22 Pulse Ox 94 12/05/23 08:20 Laboratory Results - last 24 hr 12/04/23 12/04/23 12/04/23 12:44 12:52 13:10 WBC 5.27 RBC 4.45 Hgb 13.9 Hct 41.0 MCV 92 MCH 31.2 MCHC 33.9 RDW 13.9 Plt Count 127 L MPV 9.1 Immature Gran % 0.4 Neutrophils % 84.8 Band Neutrophils % Lymphocytes % 9.1 Monocytes % 4.9 Eosinophils % 0.6 Basophils % 0.2 Metamyelocytes % Nucleated RBC % 0.0 Absolute Neutrophils 4.47 Absolute Lymphocytes 0.48 L Absolute Monocytes 0.26 Absolute Eosinophils 0.03 Absolute Basophils 0.01 RBC Morphology VBG pH 7.43 H VBG pCO2 48 VBG pO2 28 VBG HCO3 32 H VBG Total CO2 29 VBG O2 Saturation 55 VBG Base Excess 7 H VBG Lactate 1.0 Sodium 138 Potassium 3.1 L Chloride 102 Carbon Dioxide 30.8 Anion Gap 5.2 BUN 18 Creatinine 1.2 Est GFR (CKD-EPI 2020) 62.29 Glucose 156 H Calcium 9.0 Magnesium 1.6 L Total Bilirubin 0.57 AST 23 ALT 33 Alkaline Phosphatase 88 Troponin I < 50 NT-Pro-B Natriuret Pep 658 H Total Protein 7.1 Albumin 3.3 L Urine Color Yellow Urine Clarity Clear Urine pH 5.0 Ur Specific [place] 1.020 Urine Protein Negative Urine Ketones Negative Urine Blood Trace-intact H Urine Nitrite Negative Urine Bilirubin Negative Urine Urobilinogen 0.2 Ur Leukocyte Esterase Negative Urine RBC 0-2 Urine WBC Not Applicable Ur Epithelial Cells Few Urine Crystals Not Applicable Urine Bacteria Not Applicable Urine Mucus Not Applicable Ur Culture Indicated? No Urine Glucose Negative COVID-19 Source Nasopharynx SARS-CoV-2 (PCR) Negative Influenza Type A (PCR) Negative Influenza Type B (PCR) Negative RSV (PCR) Negative Add-On Test Request 12/04/23 12/04/23 12/04/23 15:01 15:42 16:06 WBC RBC Hgb Hct MCV MCH MCHC RDW Plt Count MPV Immature Gran % Neutrophils % Band Neutrophils % Lymphocytes % Monocytes % Eosinophils % Basophils % Metamyelocytes % Nucleated RBC % Absolute Neutrophils Absolute Lymphocytes Absolute Monocytes Absolute Eosinophils Absolute Basophils RBC Morphology VBG pH VBG pCO2 VBG pO2 VBG HCO3 VBG Total CO2 VBG O2 Saturation VBG Base Excess VBG Lactate Cancelled Sodium Potassium Chloride Carbon Dioxide Anion Gap BUN Creatinine Est GFR (CKD-EPI 2020) Glucose Calcium Magnesium Total Bilirubin AST ALT Alkaline Phosphatase Troponin I < 50 NT-Pro-B Natriuret Pep Total Protein Albumin Urine Color Urine Clarity Urine pH Ur Specific [place] Urine Protein Urine Ketones Urine Blood Urine Nitrite Urine Bilirubin Urine Urobilinogen Ur Leukocyte Esterase Urine RBC Urine WBC Ur Epithelial Cells Urine Crystals Urine Bacteria Urine Mucus Ur Culture Indicated? Urine Glucose COVID-19 Source SARS-CoV-2 (PCR) Influenza Type A (PCR) Influenza Type B (PCR) RSV (PCR) Add-On Test Request DONE 12/04/23 12/05/23 19:06 06:30 WBC 11.16 H RBC 4.31 L Hgb 13.5 Hct 39.1 L MCV 91 MCH 31.3 MCHC 34.5 RDW 13.9 Plt Count 123 L MPV 9.8 Immature Gran % 0.0 Neutrophils % 84.0 Band Neutrophils % 3 Lymphocytes % 7.0 Monocytes % 4.0 Eosinophils % 0.0 Basophils % 0.0 Metamyelocytes % 1 Nucleated RBC % 0.0 Absolute Neutrophils 9.71 H Absolute Lymphocytes 0.78 L Absolute Monocytes 0.45 Absolute Eosinophils 0.00 Absolute Basophils 0.00 RBC Morphology Normal VBG pH VBG pCO2 VBG pO2 VBG HCO3 VBG Total CO2 VBG O2 Saturation VBG Base Excess VBG Lactate Cancelled Sodium 138 Potassium 3.0 L Chloride 102 Carbon Dioxide 27.7 Anion Gap 8.3 BUN 22 H Creatinine 1.1 Est GFR (CKD-EPI 2020) 69.14 Glucose 256 H Calcium 9.2 Magnesium 2.5 H Total Bilirubin AST ALT Alkaline Phosphatase Troponin I NT-Pro-B Natriuret Pep Total Protein Albumin Urine Color Urine Clarity Urine pH Ur Specific [place] Urine Protein Urine Ketones Urine Blood Urine Nitrite Urine Bilirubin Urine Urobilinogen Ur Leukocyte Esterase Urine RBC Urine WBC Ur Epithelial Cells Urine Crystals Urine Bacteria Urine Mucus Ur Culture Indicated? Urine Glucose COVID-19 Source SARS-CoV-2 (PCR) Influenza Type A (PCR) Influenza Type B (PCR) RSV (PCR) Add-On Test Request Time Spent with Patient Time Spent with Patient: >50 minutes Time was spent: preparing to see the patient(eg.review tests), obtaining and/or reviewing separately otained hiistory, ordering medications,tests, procedures, referring, communicating with other health critical care transport nurse, indepentently interpreting results, counseling the patient and care coordination
[2023-12-05] MEDS: Potassium Chloride 20 MEQ TABCR 40 MEQ PO (10:57)
[2023-12-05] MEDS: POTASSIUM CHLORIDE 20 MEQ/100 ML BAG 50 MEQ IVINF ×2 (10:58→13:42)
--- NOTE | 2023-12-05 13:00 | PHA.REVIEW2 ---
Pharmacy Admission Review Admission Clinical Review Admission Pharmacy Review: Discharge planning issues (Acute) On deep vein thrombosis (DVT) prophylaxis (Acute) Encephalopathy (Acute) Community acquired pneumonia (Acute) Severe sepsis (Acute) Hypoxic respiratory failure (Acute) Hypoxia (Acute) Acute confusion (Acute) Pneumonia (Acute) No Known Allergies Allergy (Verified 12/04/23 12:32) Resuscitation Status Full Code Height 5 ft 11 in Weight 98 kg Pharmacy Admission Review Renal Dosing Renal Dosing: BUN 22 mg/dL (7-18) H 12/05/23 06:30 Creatinine 1.1 mg/dL (0.70-1.30) 12/05/23 06:30 Medications needing adjustments: Reviewed (CrCl 67.1 mL/min) List of meds needing interventions: Current medications are okay Anticoagulation Anticoagulation: Hgb 13.5 g/dL (13.5-17.5) 12/05/23 06:30 Hct 39.1 % (40.0-50.0) L 12/05/23 06:30 Plt Count 123 10^3/uL (130-400) L 12/05/23 06:30 Creatinine 1.1 mg/dL (0.70-1.30) 12/05/23 06:30 DVT Prophylaxis: Reviewed Medications: Enoxaparin (40mg daily) Relevant Labs Relevant Labs: Sodium 138 mmol/L (136-145) 12/05/23 06:30 Potassium 3.0 mmol/L (3.5-5.1) L 12/05/23 06:30 Chloride 102 mmol/L (98-107) 12/05/23 06:30 Magnesium 2.5 mg/dL (1.8-2.4) H 12/05/23 06:30 Electrolytes, C-Reactive P, ESR: Reviewed (K decreased from 3.1 to 3 - repleting with infusion and PO supplements, Mg increased from 1.6 to 2.5) DM Control DM Control: Glucose 256 mg/dL (74-106) H 12/05/23 06:30 Finger Stick Blood Glucose 244 1143 Finger Stick Blood Glucose 244 1143 Finger Stick Blood Glucose 197 0719 Finger Stick Blood Glucose 197 0719 DM Control: Reviewed Insulin Dosing, Diabetic Medication: Has order for sliding scale insulin. Does not take any medications are home for T2DM management, levels have been relatively high during this admission. Could be contributed to current infection? Cardiac Review Cardiac Review: Troponin I < 50 ng/L (< or =60) 12/04/23 15:42 NT-Pro-B Natriuret Pep 658 pg/mL (<300) H 12/04/23 13:10 BP, HR, EF%: Reviewed (BP/HR WNL) QTc Review QTc: Reviewed (469 from 12/04/23) IV to PO Switch IV Medications: Reviewed (Azithromycin, ceftriaxone and potassium infusion) Home Meds Home Med List reviewed: Reviewed Relevent Home Meds Not ordered & why?: Sildenafil (PRN) Current Meds Current Medication Order Review: Intervened Comments: Reached out to provider as no orders for antibiotics had been put in yet (just the one time doses in ER). Orders were put in shortly after. Pharmacy Antibiotic Review Relevant Labs: WBC 11.16 10^3/uL (4.4-10.8) H 12/05/23 06:30 Temperature 36.2 C Temperature 36.6 C Temperature 36.7 C Comments: Patient is on ceftriaxone and azithromycin day 1 for severe sepsis/community acquired pneumonia. WBC increased from 5.27, MRSA swab and blood cultures pending.
--- NOTE | 2023-12-05 15:42 | CHAPLAIN ---
Franc was in bed when visited. He told me he has difficulty hearing. He was admitted from the ED with pneumonia. I explained my role and offered support. Franc said I'm in good hands here. You guys are all amazing.
[2023-12-05] MEDS: AZITHROMYCIN 500 MG in Normal Saline 250 ML 250 MG IVPB (16:06)
[2023-12-05 16:08] LABS: MRSA PCR Negative (Negative)
[2023-12-05] MEDS: Enoxaparin 40 MG/0.4 ML SYR SC (17:15)
[2023-12-05] MEDS: cefTRIAXone 2 GM/50 ML BAG IVPB (17:15)
[2023-12-05] MEDS: Ibuprofen 600 MG TAB PO (17:32)
[2023-12-05] MEDS: Benzonatate 100 MG CAP PO (19:51)
[2023-12-06] VITALS (9 sets, daily range): BP systolic 117–150; BP diastolic 71–85; PULSE 61–72; RESP 2–18; TEMP 36.3–36.6; O2SAT 93–97
[2023-12-06] MEDS: Albuterol/Ipratropium 3 ML UPD VIAL UPD ×2 (02:29→09:12)
[2023-12-06 06:50] LABS: Abs Immature Grans 0.17 10^3/uL (0.0-0.06); Absolute Basophil Count 0.03 10^3/uL (0.0-0.2); Absolute Eosinophil Count 0.01 10^3/uL (0.0-0.7); Absolute Lymphocyte Count 0.98 10^3/uL (1.2-3.4); Absolute Monocyte Count 0.58 10^3/uL (0.1-0.8); Absolute Neutrophil Count 11.36 10^3/uL (1.2-6.7); Basophils % 0.2 %; Eosinophils % 0.1 %; HCT 39.8 % (40.0-50.0); HGB 13.7 g/dL (13.5-17.5); Immature Grans % 1.3 %; Lymphocytes % 7.5 %; MCH 31.4 pg (27.0-33.0); MCHC 34.4 % (32.0-36.0); MCV 91 fL (80-95); MPV 10.4 fL (8.0-11.0); Monocytes % 4.4 %; Neutrophils % 86.5 %; Platelet Count 147 10^3/uL (130-400); RBC 4.37 10^6/uL (4.36-5.78); RDW 14.6 % (11.8-14.1); RDW-SD 49.1 fL; WBC 13.13 10^3/uL (4.4-10.8)
[2023-12-06 07:11] LABS: Anion Gap 9.2 mmol/L (3-11); BUN 27 mg/dL (7-18); CO2 26.8 mmol/L (21.0-32.0); CREATININE 1.1 mg/dL (0.70-1.30); Calcium 9.4 mg/dL (8.5-10.1); Chloride 105 mmol/L (98-107); Estimated GFR 69.14 (mL/min/1.73m2); Glucose 139 mg/dL (74-106); Sodium 141 mmol/L (136-145)
[2023-12-06] MEDS: Normal Saline Flush 10 ML SYR IVP ×3 (08:50→20:12)
[2023-12-06] MEDS: Aspirin E.C. 81 MG TABEC PO (08:54)
[2023-12-06] MEDS: Potassium Chloride 20 MEQ TABCR PO ×2 (08:54→20:14)
[2023-12-06] MEDS: amLODIPine 5 MG TAB PO (08:54)
[2023-12-06] MEDS: hydroCHLOROthiazide 12.5 MG TAB PO (08:54)
[2023-12-06] MEDS: Benzonatate 100 MG CAP PO ×3 (08:54→20:13)
[2023-12-06] MEDS: Sertraline 50 MG TAB PO (08:54)
[2023-12-06] MEDS: Psyllium PKT 1 EACH PO (08:55)
[2023-12-06] MEDS: Lisinopril 20 MG TAB 40 MG PO (08:55)
[2023-12-06] MEDS: guaiFENesin 600 MG TABCR PO ×2 (08:55→20:13)
[2023-12-06] MEDS: Triamcinolone 0.1% CR 15 GM TUBE TP (08:55)
[2023-12-06] MEDS: Magnesium Oxide 400 MG TAB 200 MG PO (08:55)
[2023-12-06] MEDS: Atorvastatin 20 MG TAB 10 MG PO (08:55)
--- NOTE | 2023-12-06 08:58 | W.PM.PROGNOT ---
Date of Service Date of service: 12/06/23 Time of Service: 08:58 Assessment and Plan Assessment and plan (1) Severe sepsis: Status: Acute Assessment and plan: On admission Tachypnea at 28, HR 98, encephalopathy with source as pneumonia evidenced by chest XR Slightly worsening leukocytosis from 12/04 w WBC at 11- WBC at 13 this AM; 5.27 on 12/03 -Initially considered to be d/t Methylpred 125 mg IVP in the ED on 10/03; will continue to monitor and re-evaluate factors for MDRO - no recent hospitalization or antibiotic use w/in 90 days -Clinically improved, on RA, afebrile Transitioning to cefpodoxime and oral azithromycin blood cultures no growth 24 hours at 09:47 MRSA swab reordered at 10:26 and negative this PM Urine legionella, strep pneumo on 12/03 pending at 09:34, no expectoration Mycoplasma pneumonia ordered on 12/03 also pending no expectoration Nasal saline spray PRN (2) Community acquired pneumonia: Status: Acute Assessment and plan: As above and RT consulted Continue to use IS, Vibra-pep, mucinex, benzonate RT mentioned compensated VGB but patient denies Hx of COPD; cannabis only smoker-Pulmonary referral outpatient (3) Hypoxic respiratory failure: Status: Acute Assessment and plan: As above and in point 1 (4) Encephalopathy: Status: Acute Assessment and plan: Improved and continue as above and in point one PT consult for safe discharge -OPT PT (5) Hypertension: Status: Chronic Assessment and plan: On home medicines (6) Diabetes mellitus: Status: Chronic Assessment and plan: Continue Gluc AC and HS with moderate SSI coverage- improved glycemia Patient does not appear to get DM II meds at home but might expect a transient elevation in blood glucose d/t steroids in ED and acute illness A1C 6.3 in 07/2023 and lifestyle management as per PCP (7) On deep vein thrombosis (DVT) prophylaxis: Status: Acute Assessment and plan: Continue LMWH (8) Discharge planning issues: Status: Acute Assessment and plan: Not determined yet but possible in AM CM to f/u as needed Home on ora antibiotics when stable if negative blood cultures Discussed with Dr. Schmidt Subjective Subjective Patient reports: no new complaints, feels better, tolerating liquids well, tolerating a regular diet, voiding w/o difficulty, flatus and bowel movement; denies diarrhea, blood in stool, nausea, vomiting, shortness of breath or fever Exam Narrative Exam Narrative: Constitutional The patient is without acute distress Neuro:alert and oriented X3 Resp: clear lungs with fine basilar crackles Cardio: regular rhythm, S1, S2, GI: Abdomen is not distended, soft and non tender, bowel sounds are present Extremities: strength 5/5 to bilateral lower and upper extremities Psych: RASS 0, congruent mood and normal affect. Objective Last Vital Signs Temp 36.6 C 12/06/23 08:09 Pulse 64 12/06/23 08:09 Resp 18 12/06/23 08:09 BP 141/80 H 12/06/23 08:09 Pulse Ox 95 12/06/23 08:09 Laboratory Results - last 24 hr 12/05/23 12/06/23 14:14 06:20 WBC 13.13 H RBC 4.37 Hgb 13.7 Hct 39.8 L MCV 91 MCH 31.4 MCHC 34.4 RDW 14.6 H Plt Count 147 MPV 10.4 Immature Gran % 1.3 Neutrophils % 86.5 Lymphocytes % 7.5 Monocytes % 4.4 Eosinophils % 0.1 Basophils % 0.2 Nucleated RBC % 0.0 Absolute Neutrophils 11.36 H Absolute Lymphocytes 0.98 L Absolute Monocytes 0.58 Absolute Eosinophils 0.01 Absolute Basophils 0.03 Sodium 141 Potassium 4.0 D Chloride 105 Carbon Dioxide 26.8 Anion Gap 9.2 BUN 27 H Creatinine 1.1 Est GFR (CKD-EPI 2020) 69.14 Glucose 139 H Calcium 9.4 MRSA (TEM-PCR) Negative Time Spent with Patient Time Spent with Patient: >50 minutes Time was spent: preparing to see the patient(eg.review tests), obtaining and/or reviewing separately otained hiistory, ordering medications,tests, procedures, referring, communicating with other health infant childcare provider, indepentently interpreting results, counseling the patient and care coordination
[2023-12-06] MEDS: Cefpodoxime 200 MG TAB PO ×2 (11:23→20:13)
--- NOTE | 2023-12-06 11:28 | IN_ITS ---
PT Notes Visit Reasons: Severe Sepsis,Com Acquired Pneumonia,Hyp Resp Fail Physical Therapy Inpatient Initial Evaluation Date: 12/06/23 Referring Doctor: Mechelle Segundo NP PT Orders: PT CONSULT: Safety Consult for D/C Precautions: Fall. Standard. Activity as tolerated. Patient Profile/Admitting Diagnosis: Franc is 78 yo male that presented to the ER on 12/04/23 for cough and fever. He had presented to urgent care the day prior. Franc was admitted for pneumonia and sepsis. PMHX: See EMR Social History/Home Situation: Lives with spouse, retired. Has 4 [address], 15 stairs to 2nd floor bedroom. Independent at baseline. Equipment Owned/DME: None Subjective: Cleared by nursing to see patient and patient is agreeable to PT. Patient is resting in bed at time of consult. present. Objective: General Observation: Pleasant and alert. Mild unsteadiness in standing/walking. Mental Status: A&O x3 Pain: None ROM: Right Upper Extremity: Shoulder Flexion WFL. Shoulder abduction WFL. Elbow flexion WFL. Wrist flexion WFL. Opening and closing of hand WFL. Left Upper Extremity: Shoulder Flexion WFL. Shoulder abduction WFL. Elbow flexion WFL. Wrist flexion WFL. Opening and closing of hand WFL. Right Lower Extremity: Hip flexion WFL. Hip abduction WFL. Knee flexion WFL. Ankle dorsiflexion WFL. Ankle plantarflexion WFL. Left Lower Extremity: Hip flexion WFL. Hip abduction WFL. Knee flexion WFL. Ankle dorsiflexion WFL. Ankle plantarflexion WFL. Strength: Right Upper Extremity: Shoulder flexors 5/5. Shoulder abductors 5/5. Elbow flexors 5/5. Elbow extensors 5/5. Senior Training Specialist strong. Left Upper Extremity: Shoulder flexors 5/5. Shoulder abductors 5/5. Elbow flexors 5/5. Elbow extensors 4+/5. Senior Training Specialist strong. Right Lower Extremity: Hip flexors 5/5. Knee flexors 5/5. Knee extensors 5/5. Ankle dorsiflexors 5/5. Ankle plantarflexors 5/5. Left Lower Extremity: Hip flexors 5/5. Knee flexors 5/5. Knee extensors 5/5. Ankle dorsiflexors 5/5. Ankle plantarflexors 5/5. Sensation: Intact as to pain and pressure on bilateral lower extremities. Bed Mobility/Transfers: Rolling: Independent Supine to sit: Independent Sit to supine: Independent Sit to stand: Independent Stand to sit: Independent Gait: Ambulated 300 ft with supervision, slight path deviation with mild unsteadiness of gait Stairs: Ascended and descended 2 flight of stairs with rail support, supervision Balance: Static Sitting: Normal Dynamic Sitting: Good Static Standing: Fair Dynamic Standing: Poor Balance (seconds): Tandem L 10 R 10 SLS L 7 R 0 Therapeutic Activity (93007) dynamic movement and functional strengthening to improve physical performance: 20 minutes Discussed outpatient PT and provided below for HEP - Single Leg Stance - 2 x daily - 3 reps - 30 hold - Tandem Stance - 2 x daily - 3 reps - 30 hold - Standing Tricep Extensions with Resistance - 3 x weekly - 2 sets - 10 reps - Standing Bent Over Triceps Extension - 3 x weekly - 2 sets - 10 reps - Side Stepping with Resistance at Feet - 4 x weekly - 3 sets - 10 reps Access Code: [email or web address] URL: [email or web address] Date: 12/06/2023 Prepared by: Clemencia Kelley Special Tests: Mobility Limitations Standardized Measure [facility] AM-PAC 6 clicks Basic Mobility Inpatient Short Form: Raw Score: 24 CMS Score: 0% Informed Consent/Education: Patient instructed in purpose of PT consult and plan of care. Assessment: Franc demonstrates overall good strength and mobility. He does appear to have balance impairment. Static balance is challenged. When ambulating he has slight path deviation. In standing will have occasional posterior sway, which he does recover. Concerned for increased fall risk secondary to balance challenges. He does not need acute care PT services, but will benefit from outpatient PT for balance impairment. Patient presents with clinical signs and symptoms consistent with current/admitting diagnoses that have resulted to mobility limitations, gait instability, generalized weakness, and impairment of motor control as demonstrated by the following impairment level findings: 1. Impaired standing balance 2. Impaired activity tolerance Impairments are contributing to the following functional limitations: 1. Increased fall risk Patient is assessed as a Low complexity based on the following: History: 78 year old male with impairment level findings, functional limi tations, and past medical history as indicated above Examination: Demonstrable impairment in strength, balance, and mobility level with underlying impairments and functional limitations as documented above Presentation: Stable Decision Making: Low complexity Plan of Care/Treatment Plan: Therapy consult only Discharge Plan DISCHARGE RECOMMENDATIONS: Home with outpatient PT for balance TREATMENT CODE/TIME: 10:47-11:25 (38 minutes), [id number], [id number] Thank you for the opportunity to participate in the care of this patient. Clemencia Kelley, PT, DPT, OCS [facility] [place], [place]
[2023-12-06] MEDS: Enoxaparin 40 MG/0.4 ML SYR SC (17:50)
[2023-12-06] MEDS: Acetaminophen 500 MG TAB 1000 MG PO (20:14)
[2023-12-06 22:39] LABS: Legionella Ag Detection Urine Negative (Negative)
[2023-12-07 04:22] VITALS: BP 115/68; PULSE 64; RESP 18; TEMP 36.8; O2SAT 93
[2023-12-07 06:55] LABS: Abs Immature Grans 0.06 10^3/uL (0.0-0.06); Absolute Basophil Count 0.01 10^3/uL (0.0-0.2); Absolute Eosinophil Count 0.09 10^3/uL (0.0-0.7); Absolute Lymphocyte Count 0.78 10^3/uL (1.2-3.4); Absolute Monocyte Count 0.54 10^3/uL (0.1-0.8); Absolute Neutrophil Count 6.84 10^3/uL (1.2-6.7); Basophils % 0.1 %; Eosinophils % 1.1 %; HCT 37.7 % (40.0-50.0); HGB 12.9 g/dL (13.5-17.5); Immature Grans % 0.7 %; Lymphocytes % 9.4 %; MCH 31.2 pg (27.0-33.0); MCHC 34.2 % (32.0-36.0); MCV 91 fL (80-95); Monocytes % 6.5 %; Neutrophils % 82.2 %; Platelet Count 147 10^3/uL (130-400); RBC 4.14 10^6/uL (4.36-5.78); RDW 14.5 % (11.8-14.1); RDW-SD 48.7 fL; WBC 8.32 10^3/uL (4.4-10.8)
[2023-12-07 07:11] LABS: Anion Gap 8.6 mmol/L (3-11); BUN 20 mg/dL (7-18); CO2 28.4 mmol/L (21.0-32.0); CREATININE 0.9 mg/dL (0.70-1.30); Calcium 9.2 mg/dL (8.5-10.1); Chloride 104 mmol/L (98-107); Estimated GFR 87.96 (mL/min/1.73m2); Glucose 116 mg/dL (74-106); Potassium 3.4 mmol/L (3.5-5.1); Sodium 141 mmol/L (136-145)
[2023-12-07 07:35] VITALS: BP 136/77; PULSE 63; RESP 19; TEMP 37; O2SAT 94
--- NOTE | 2023-12-07 08:56 | DSE_ITS ---
Date of service: 12/07/23 Time of Service: 08:56 DS: Diagnosis Discharge Diagnosis (1) Severe sepsis: Status: Acute (2) Community acquired pneumonia: Status: Acute (3) Hypoxic respiratory failure: Status: Acute (4) Encephalopathy: Status: Acute (5) Hypertension: Status: Chronic (6) Diabetes mellitus: Status: Chronic (7) On deep vein thrombosis (DVT) prophylaxis: Status: Acute (8) Discharge planning issues: Status: Acute Discharge Plan Disposition Patient Disposition: Home Condition: Improving Discharge Details Reason For Visit: Severe Sepsis,Com Acquired Pneumonia,Hyp Resp Fail Admit Date/Time: 12/04/23 15:10 Admit Provider: Juvencio Menjivar Attending Provider: Juvencio Menjivar Primary Care Provider: Reena Grove Hospital Course Hospital Course: This 78-year-old old male patient with a past medical history of diabetes currently on lifestyle changes management, essential hypertension, hyperlipidemia, B-cell lymphoma, cognitive impairment and alcohol abuse presented to the ED at [facility] on 12/04/2023 via EMS for evaluation of shortness of breath, increased confusion, and fever. On 12/02/2023 the patient was seen at [facility] with recommendation for conservative symptomatic treatment for upper respiratory infection type care. EMS reported finding the patient incontinent of urine with productive cough and a fever of 102. They administered an albuterol nebulizer due to saturation in oxygen at 88-89% on room air; the patient does not wear home oxygen. The patient denied COPD history but reported smoking cannabis but was exposed to second hand tobacco smoke when younger. The patient had no recent hospitalization or use of antibiotic. The emergency room workup was significant for chest x-ray showing bilateral infiltrates without leukocytosis and without lactatemia. Fluvid panel was neg ative, platelets were 133, potassium 3.1, magnesium 1.6, proBNP 658. In the ED patient was treated with IV doxycycline, methylprednisolone IV push, DuoNebs, oral acetaminophen and IV ketorolac. Oxygen was also initiated. The hospitalist service admitted the patient for severe sepsis, community-acquired pneumonia and hypoxic respiratory failure. VBG was added to the emergency room workup after t he patient was accepted to the medical surgical floor; results showed not respiratory acidosis. During the stay the patient was treated with ceftriaxone and azithromycin IV. Blood cultures were negative at 48 hours. Urine Legionella and strep pneumo were negative. The patient was unable to expectorate thus mycoplasma pneumonia could not be completed. On the following day the patient developed leukocytosis with over double his initial WBC; this might be due to steroid administered on initial presentation. Leukocytosis has resolved. The patient remained afebrile, normotensive and no longer requires oxygen supplementation. Patient will be discharged home on a short course of cefpodoxime and oral azithromycin as well as Mucinex and probiotics. Physical therapy was consulted with recommendation for outpatient physical therapy and referral was made with follow-up and further referrals to be made by primary care practitioner. A pulmonary medicine referral was made for evaluation of chronic obstructive pulmonary disease. The patient will have to follow-up with his primary care practitioner within 7 days of discharge. Discussed with Dr. Kearns Home Meds and New Rx's Prescriptions: New guaifenesin [Mucus Relief ER] 600 mg Tablet Extended Release 12hr 600 mg PO BID Qty: 10 0RF cefpodoxime 200 mg tablet 200 mg PO Q12H Qty: 10 0RF Rx Instructions: must administer with a meal/food Bio-K plus 50 billion cell capsule,delayed release(DR/EC) 1 cap PO DAILY Qty: 5 0RF azithromycin 250 mg tablet 250 mg PO DAILY 5 Days Qty: 5 0RF Continued atorvastatin 20 mg tablet 10 mg PO DAILY benzonatate 100 mg capsule 100 mg PO TID PRN (Reason: cough) 7 Days Qty: 20 0RF psyllium husk [Metamucil] 0.4 gram capsule 0.4 g PO DAILY aspirin [Adult Aspirin Regimen] 81 mg tablet,delayed release (DR/EC) 81 mg PO DAILY betamethasone valerate 0.1 % cream 1 applic topical BID PRN (Reason: rash) Qty: 15 0RF Rx Instructions: use sparingly for as few days as possible.Steroids on the face can be harmful clotrimazole 1 % cream 1 applic topical BID PRN (Reason: rash) Qty: 30 0RF amlodipine 5 mg tablet 5 mg PO DAILY Qty: 90 3RF hydrochlorothiazide 25 mg tablet 12.5 mg PO DAILY Qty: 90 3RF lisinopril 40 mg tablet 40 mg PO DAILY Qty: 90 3RF potassium chloride 20 mEq tablet extended release 20 meq PO BID Qty: 180 3RF magnesium oxide 250 MG tablet 1 tab PO DAILY Patient Comments: 12/16/16 pt states he only takes one tab daily ts triamcinolone acetonide 0.1 % cream 1 applic TP BID Qty: 30 0RF sildenafil 100 mg tablet 100 mg PO DAILY PRN (Reason: sexual activity) Qty: 30 2RF Rx Instructions: administer 30 minutes to 4 hours before activity sertraline 50 mg tablet 50 mg PO DAILY Qty: 90 4RF Discharge Instructions Instructions: Sepsis, Adult (DC), Community-Acquired Pneumonia, Adult (DC) Stand Alone Forms: Nursing Discharge Form Referrals: Reena Grove MD, [place] [Primary Care Provider] - (Message left with office to call you Friday to make a follow up appointment. If you do not hear from them by Friday after noon please call to make a follow up appointment for 1-2 weeks. ) Sofia Borges MD [ [facility] STAFF PHYSICIAN] - (Message left with office to call you to make a follow up appointment. Please ca ll them if you do not hear from them Friday. PFT testing Hx of smoking cannabis not tobacco- ? secondary exposure- Admitted with CAP PNA,hypoxic resp. fail., compensated VBG, denies Dx of COPD) Mark Anthony Vasquez, PT [PHYSICAL THERAPIST] - (Message left with office to call you and set up appointment. Please call them if you do not hear from Friday. Outpatient physical Therapy: Patient is assessed as a Low complexity based on the following: History: 78 year old male with impairment level findings, functional limitations, and past medical history as indicated above Examination: Demonstrable impairment in strength, balance, and mobility level with underlying impairments and functional limitations as documented above Presentation: Stable Decision Making: Low complexity Plan of Care/Treatment Plan: Therapy consult only Discharge Plan DISCHARGE RECOMMENDATIONS: Home with outpatient PT for balance) Activity:: Activity as Tolerated Equipment/Supplies:: No Equipment Needed Diet:: heart healthy diabetic Discharge Orders Discharge Orders: Discharge Order (Routine); Ordered 12/07/23 Ordered By: Mechelle Segundo Discharge Data Discharge Date/Time-TO BE ENTERED AT DEPARTURE: 12/07/23 10:57 DS: Summary Time Spent with Patient providing and/or coordinating discharge services: Greater than 30 minutes Status at Discharge Functional status at discharge: independent ambulation Overall status at discharge: patient is back to baseline Mental Status: mental status grossly normal Speech and Movement: speech and movement normal Mood: congruent mood Affect: normal affect Quality:SDOH Health Related Social Needs: No Data to Display Exam Narrative Exam Narrative: Constitutional The patient is without acute distress Neuro:alert and oriented X3 Resp: clear lungs Cardio: regular rhythm, S1, S2, GI: Abdomen is not distended, soft and non tender, bowel sounds are present Psych: RASS 0, congruent mood and normal affect. Psych Mental Status: mental status grossly normal Speech and Movement: speech and movement normal Mood: congruent mood Affect: normal affect DS: Data Vitals/I&O Vitals and I&O: Vital Signs Temperature 37.0 C 12/07/23 07:35 Temperature Source Tympanic 12/07/23 07:35 Pulse 63 12/07/23 07:35 Pulse Rhythm Regular 12/06/23 20:10 Pulse 81 12/04/23 16:20 Respiratory Rate 19 12/07/23 07:35 Respiratory Effort Normal, Non-Labored 12/06/23 16:35 Respiratory Depth Shallow 12/06/23 20:10 Respiratory Pattern Normal 12/06/23 20:10 Blood Pressure 136/77 12/07/23 07:35 Blood Pressure Mean 75 12/04/23 16:16 Blood Pressure Position Supine 12/04/23 12:33 Pulse Oximetry 94 12/07/23 07:35 Oxygen Delivery Method Room Air 12/07/23 07:35 Oxygen Flow Rate 0 12/07/23 07:35 Pain Level 0 12/07/23 07:35 Comment RN informed of BP 12/06/23 15:01 Comment 3l 12/04/23 15:30 Intake & Output 12/06/23 12/06/23 12/07/23 11:59 23:59 11:59 Intake Total 800 / 1560 760 / 1560 Balance 800 / 1560 760 / 1560 Intake: Oral 800 / 1560 760 / 1560 Other: Urine Color Yellow Yellow Urine Appearance Clear Clear Comment voided independently Stool Size Moderate Stool Characteristics Soft Formed Voiding Methods Toilet Toilet Toilet Data Completed and Pending Labs on day of discharge: Labs from last 24 hours 12/07/23 12/06/23 06:30 20:20 WBC 8.32 RBC 4.14 L Hgb 12.9 L Hct 37.7 L MCV 91 MCH 31.2 MCHC 34.2 RDW 14.5 H Plt Count 147 MPV 10.0 Immature Gran % 0.7 Neutrophils % 82.2 Lymphocytes % 9.4 Monocytes % 6.5 Eosinophils % 1.1 Basophils % 0.1 Nucleated RBC % 0.0 Absolute Neutrophils 6.84 H Absolute Lymphocytes 0.78 L Absolute Monocytes 0.54 Absolute Eosinophils 0.09 Absolute Basophils 0.01 Sodium 141 Potassium 3.4 L Chloride 104 Carbon Dioxide 28.4 Anion Gap 8.6 BUN 20 H Creatinine 0.9 Est GFR (CKD-EPI 2020) 87.96 Glucose 116 H Calcium 9.2 M. pneumoniae Source Pending M. pneumoniae (PCR) Pending Preliminary micro results at discharge 12/04/23 13:15 Blood Culture - Preliminary Blood NO GROWTH 48 HOURS 12/04/23 13:10 Blood Culture - Preliminary Blood NO GROWTH 48 HOURS PFSH All Active Problems (Updated 12/04/23 @ 16:31 by MIGUE PEGUERO) Discharge planning issues (Acute) On deep vein thrombosis (DVT) prophylaxis (Acute) Hypertension (Chronic) Encephalopathy (Acute) Community acquired pneumonia (Acute) Severe sepsis (Acute) Hypoxic respiratory failure (Acute) Hypoxia (Acute) Acute confusion (Acute) Pneumonia (Acute) Cognitive impairment (Acute) Change in multiple pigmented skin lesions (Acute) Pain of right thumb (Acute) Hyperplastic colon polyp (Acute) Tubular adenoma of colon (Acute) Serrated adenoma of colon (Acute) Adenomatous polyps (Acute) Tubular adenoma/serrated adenoma in 2019 at [facility] (Acute) Chronic cough (Acute) Sensation of fullness in left ear (Acute) Otorrhea, left ear (Acute) Adhesive capsulitis of left shoulder (Acute) Impingement syndrome of left shoulder (Acute) Tendinitis of long head of biceps brachii of left shoulder (Acute) Left rotator cuff tear (Acute) Heel pain (Acute 08/27/12) Liver function test abnormality (Acute) PLEVA (pityriasis lichenoides et varioliformis acuta) (Acute) Psoriasis (Chronic 12/16/16) Leukoencephalitis, 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 Left ventricular hypertrophy (Chronic 03/14/14) Hyperlipidemia (Chronic) Essential hypertension (Chronic 02/18/13) left ventricular hypertrophy by echo Diabetes mellitus (Chronic 12/12/14) Degenerative lumbar spinal stenosis (Chronic 10/03/16) extruded disc; disc protrusion, lateral recess stenosis B-cell lymphoma (Chronic 04/26/13) STEM CELL TRANSPLANT 2005 RECURRENT X 2 Medical History Cerumen impaction Bursitis of left shoulder Otalgia Left shoulder pain Alcohol intake above recommended sensible limits Alcohol intake above recommended sensible limits Abnormal liver function test now resolved Heel pain 08/27/12 Degenerative lumbar disc (09/17/16) L4-5 severe Colon polyp 10/23/15 [facility]- 4 MM SESSILE POLYP Acute midline thoracic back pain (12/15/17) Surgical History History of colonoscopy (~05/2022) History of eye surgery H/O eye surgery right eye retina Eye surgery Right eye retinal 2006 Extraction of cataract bilat Family History Mother Heart disease CHF Hypercholesterolemia Father No problems noted. Maternal Grandfather No problems noted. Maternal Grandmother No problems noted. Paternal Grandmother No problems noted. Son No problems noted. Son No problems noted. Daughter No problems noted. Sister No problems noted. Social History Smoking/Tobacco Use Status: Never Smoking risk assessment performed?: Yes Alcohol Intake: current Alcohol Intake frequency: holidays/special occasions only Alcohol type: beer and wine Drug use: Occasionally Substance use type: marijuana Adopted: No Caregiver/Support person: No Household members: spouse Housing: house Communication Needs: None Education Level: college Details: 1 year Do you need help understanding health information?: Rarely current occupation: Retired Pets and animals: No Sexually active: Yes Do you think of yourself as: straight/heterosexual Current gender identity: male What is your relationship status?: How often do you talk on the phone with friends or family?: three or more times per week How often do you get together with friends or relatives?: twice per week How often do you attend pentecostalism or advent services?: decline to answer Do you belong to any clubs or organized social groups?: no Panel score (0-1 are the most socially isolated patients): 2 What type of physical activity do you participate in: bicycling, weight lifting and other Details: Cardio Duration: 45-60 minutes/day Christen/Congregation: Non church Special christen needs: No Seatbelt use: always Drive intox or ride w/intox warehouse driver: No Firearms in home: Yes Do you feel safe at home: Yes Do you feel safe in your relationship?: Yes Victim of physical abuse: No Victim of emotional abuse: No Victim of sexual abuse: No Would you like helpful sources: No Additional Social history: to arrive soon Time Spent with Patient Time Spent with Patient: >85 minutes Time was spent: preparing to see the patient(eg.review tests), obtaining and/or reviewing separately otained hiistory, ordering medications,tests, procedures, referring, communicating with other health home day care provider, indepentently interpreting results, counseling the patient and care coordination
[2023-12-07] MEDS: guaiFENesin 600 MG TABCR PO (09:12)
[2023-12-07] MEDS: Potassium Chloride 20 MEQ TABCR PO (09:12)
[2023-12-07] MEDS: Sertraline 50 MG TAB PO (09:12)
[2023-12-07] MEDS: Cefpodoxime 200 MG TAB PO (09:12)
[2023-12-07] MEDS: amLODIPine 5 MG TAB PO (09:12)
[2023-12-07] MEDS: Lisinopril 20 MG TAB 40 MG PO (09:12)
[2023-12-07] MEDS: Atorvastatin 20 MG TAB 10 MG PO (09:13)
[2023-12-07] MEDS: Aspirin E.C. 81 MG TABEC PO (09:13)
[2023-12-07] MEDS: hydroCHLOROthiazide 12.5 MG TAB PO (09:13)
[2023-12-07] MEDS: Magnesium Oxide 400 MG TAB 200 MG PO (09:13)
--- NOTE | 2023-12-07 09:29 | CMDISCH_ITS ---
Date of service: 12/07/23 Time of Service: 09:29 LACE Index Scoring Tool Questions: Length of Stay (in days): 3 Was the patient admitted via the E.D.?: Yes Comorbidities: Diabetes w/o Complication, Any Tumor and Liver or Renal Disease E.D. Visits: 1 Answers: Total Score: 12 Risk of Readmission: High Risk Care Management Discharge Plan Reason for Hospitalization: pneumonia Discharge Plan: Franc will be discharged home with no new services. He will follow up with his PCP and plan of care and transport with family. Patient/Family Education Needs: Review discharge instructions, discuss Ask Me Three [facility] Health Related Social Needs: No Data to Display
[2023-12-09 14:22] LABS: Streptococcus Pneumoniae Ag, U Negative (Negative)
[2023-12-10 14:38] LABS: Mycoplasma Pneumoniae PCR Negative (Negative); Specimen source sputum
== END 2023-12-07 10:57 | disposition home or self-care (01) | DRG 871 ==
LOC: ER 14:49 → MS 16:30
PROVIDERS: Nurse Practitioner Acute Care; Admitting Provider Family Medicine; Emergency Provider Registered Nurse Emergency; PCP Family Medicine; Visit Provider Family Medicine
DX: A41.9 Sepsis, unspecified organism (principal); J18.9 Pneumonia, unspecified organism; J96.01 Acute respiratory failure with hypoxia; G93.40 Encephalopathy, unspecified; C85.10 Unspecified B-cell lymphoma, unspecified site; Z94.84 Stem cells transplant status; R65.20 Severe sepsis without septic shock; I10 Essential (primary) hypertension; E11.9 Type 2 diabetes mellitus without complications; E78.5 Hyperlipidemia, unspecified; F10.10 Alcohol abuse, uncomplicated; R41.89 Other symptoms and signs involving cognitive functions and awareness; L41.0 Pityriasis lichenoides et varioliformis acuta; L40.9 Psoriasis, unspecified; M48.061 Spinal stenosis, lumbar region without neurogenic claudication; Z77.22 Contact with and (suspected) exposure to environmental tobacco smoke (acute) (chronic); F12.91 Cannabis use, unspecified, in remission
CPT/HCPCS: 00123; 36415; 80048; 80053; 82805; 87040; 87449; 87637; 87641; 93005; 94640; 96365; 96368; 96375; 97161; 97530; 99291; J1650; 70450; 71045; 81003; 81015; 83605; 83735; 83880; 84484; 85025; 87581; 87899; 93010; 94667; 94668; 94760; 99222; 99233; 99239; J0131; J0456; J0696; J1815; J2919; J3475; J3480; J7613; J7620

== ENCOUNTER 2024-03-10 03:34 | Outpatient (CLI) | payer MEDICARE, BC, SELFPAY ==
[2024-03-10 11:11] LABS: HGB 14.7 g/dL (13.5-17.5); MCH 31.7 pg (27.0-33.0); MCHC 34.2 % (32.0-36.0); MCV 93 fL (80-95); MPV 8.8 fL (8.0-11.0); Platelet Count 141 10^3/uL (130-400); RBC 4.63 10^6/uL (4.36-5.78); RDW 14.1 % (11.8-14.1); RDW-SD 47.6 fL; WBC 4.76 10^3/uL (4.4-10.8)
[2024-03-10 11:22] LABS: Hemoglobin A1C 5.9 % (<5.7)
[2024-03-10 12:06] LABS: ALT 45 U/L (16-63); AST 25 U/L (15-37); Albumin 3.5 g/dL (3.4-5.0); Alkaline Phosphatase 88 U/L (46-116); BUN 26 mg/dL (7-18); Bilirubin, Total 0.67 mg/dL (0.2-1.0); CREATININE 1.2 mg/dL (0.70-1.30); Calcium 10.1 mg/dL (8.5-10.1); Chloride 105 mmol/L (98-107); Estimated GFR 62.29 (mL/min/1.73m2); Glucose 116 mg/dL (74-106); Potassium 3.9 mmol/L (3.5-5.1); Sodium 141 mmol/L (136-145); Total Protein 7.3 g/dL (6.4-8.2)
== END 2024-03-10 03:35 | disposition home or self-care (01) ==
LOC: LBO 03:35
PROVIDERS: PCP Family Medicine; Visit Provider Family Medicine
DX: I10 Essential (primary) hypertension (principal); D64.9 Anemia, unspecified; E11.9 Type 2 diabetes mellitus without complications; Z23 Encounter for immunization
CPT/HCPCS: 36415; 80053; 85027; 83036

== ENCOUNTER 2024-04-22 03:46 | Outpatient (CLI) | payer MEDICARE, BC, SELFPAY ==
[2024-04-22 12:51] LABS: Abs Immature Grans 0.02 10^3/uL (0.0-0.06); Absolute Basophil Count 0.02 10^3/uL (0.0-0.2); Absolute Eosinophil Count 0.11 10^3/uL (0.0-0.7); Absolute Lymphocyte Count 0.77 10^3/uL (1.2-3.4); Absolute Monocyte Count 0.45 10^3/uL (0.1-0.8); Absolute Neutrophil Count 3.22 10^3/uL (1.2-6.7); Basophils % 0.4 %; Eosinophils % 2.4 %; HCT 43.1 % (40.0-50.0); HGB 14.8 g/dL (13.5-17.5); Immature Grans % 0.4 %; Lymphocytes % 16.8 %; MCHC 34.3 % (32.0-36.0); MCV 93 fL (80-95); MPV 9.3 fL (8.0-11.0); Monocytes % 9.8 %; Neutrophils % 70.2 %; Platelet Count 151 10^3/uL (130-400); RBC 4.62 10^6/uL (4.36-5.78); RDW 13.9 % (11.8-14.1); RDW-SD 47.8 fL; WBC 4.59 10^3/uL (4.4-10.8)
[2024-04-22 13:28] LABS: ALT 37 U/L (16-63); AST 20 U/L (15-37); Albumin 3.5 g/dL (3.4-5.0); Alkaline Phosphatase 95 U/L (46-116); Anion Gap 6.7 mmol/L (3-11); BUN 22 mg/dL (7-18); Bilirubin, Total 0.47 mg/dL (0.2-1.0); CO2 30.3 mmol/L (21.0-32.0); CREATININE 1.2 mg/dL (0.70-1.30); Calcium 9.8 mg/dL (8.5-10.1); Chloride 106 mmol/L (98-107); Estimated GFR 62.29 (mL/min/1.73m2); Glucose 189 mg/dL (74-106); LDH 152 U/L (85-227); Potassium 3.7 mmol/L (3.5-5.1); Sodium 143 mmol/L (136-145); Total Protein 7.3 g/dL (6.4-8.2)
[2024-04-23 10:52] LABS: IgA 233 mg/dL (85-499); IgG 1204 mg/dL (610-1616); IgM 216 mg/dL (35-242)
== END 2024-04-22 03:47 | disposition home or self-care (01) ==
PROVIDERS: PCP Family Medicine; Visit Provider Nurse Practitioner Adult Health
DX: C82.21 Follicular lymphoma grade III, unspecified, lymph nodes of head, face, and neck (principal)
CPT/HCPCS: 36415; 80053; 82784; 83615; 85025

== ENCOUNTER → 2025-04-12 01:35 | Outpatient (CLI) | payer MEDICARE, BC, SELFPAY ==
--- NOTE | 2025-04-12 06:15 | DI.RAD_ITS ---
Exam(s) XR LUMBAR SPINE COMPLETE EXAM: XR LUMBAR SPINE COMPLETE CLINICAL HISTORY: LOW BACK PAIN, LUMBAR RADICULAR PAIN, M54.16. TECHNIQUE: 2D digital imaging was performed of the lumbar spine. Six images were obtained. AP, lateral, right oblique, left oblique and L5-S1 spot views were obtained. COMPARISON: No exams were available for comparison FINDINGS: BONES: No fracture or destructive lesion. Endplate osteophytes are seen at multiple levels. There is smooth anterior bridging osteophytes seen in the lower thoracic and upper lumbar spine. The findings are suggestive of ankylosing spondylitis. There are degenerative changes of the facets at multiple levels, particularly at L3-4, L4-5 and L5-S1. DISKS: There is disc space narrowing at L3-4 and L4-L5. ALIGNMENT: Lumbar spinal alignment is within normal limits. No spondylolysis or spondylolisthesis. SOFT TISSUE: Atherosclerotic calcification is present. IMPRESSION: 1. Findings suggestive of ankylosing spondylitis in the spine. 2. Degenerative changes are also present. 3. No acute fracture or subluxation is present. DATA REPOSITORY: RADIATION DOSE DELIVERED:
== END ==
LOC: DI 01:35
PROVIDERS: PCP Family Medicine; Visit Provider Family Medicine
DX: M51.17 Intervertebral disc disorders with radiculopathy, lumbosacral region (principal)
CPT/HCPCS: 72110

== ENCOUNTER 2025-04-12 01:45 | Outpatient (CLI) | payer MEDICARE, BC, SELFPAY ==
[2025-04-12 08:25] LABS: HCT 42.6 % (40.0-50.0); HGB 14.3 g/dL (13.5-17.5); MCH 31.4 pg (27.0-33.0); MCHC 33.6 % (32.0-36.0); MCV 94 fL (80-95); MPV 8.9 fL (8.0-11.0); Platelet Count 151 10^3/uL (130-400); RBC 4.55 10^6/uL (4.36-5.78); RDW 13.5 % (11.8-14.1); RDW-SD 46.9 fL; WBC 5.02 10^3/uL (4.4-10.8)
[2025-04-12 08:40] LABS: Hemoglobin A1C 6.2 % (<5.7)
[2025-04-12 09:26] LABS: TSH (W/Ref FT4) 2.91 uIU/mL (0.55-4.78)
[2025-04-12 09:34] LABS: ALT 22 U/L (10-49); AST 22 U/L (<34); Albumin 4.0 g/dL (3.4-5.0); Alkaline Phosphatase 88 U/L (46-116); Anion Gap 2.6 mmol/L (3-11); BUN 19 mg/dL (9-23); Bilirubin, Total 0.60 mg/dL (0.2-1.2); CO2 30.4 mmol/L (20.0-31.0); Calcium 9.7 mg/dL (8.3-10.6); Chloride 105 mmol/L (98-107); Cholesterol 162 mg/dL (<200); Glucose 135 mg/dL (74-106); HDL Cholesterol 39 mg/dL (>40); Potassium 3.5 mmol/L (3.5-5.1); Sodium 138 mmol/L (136-145); Total Protein 7.2 g/dL (5.7-8.2)
[2025-04-12 09:41] LABS: Vitamin B12 622 pg/mL (211-911)
[2025-04-12 20:32] LABS: Hepatitis C Ab w Rflx HCV PCR Negative (Negative)
[2025-04-13 15:08] LABS: Albumin 56.8 % (55.8-66.1); Albumin g/dL 4.0 g/dL (3.6-5.2); Alpha 1 g/dL 0.30 g/dL (0.15-0.40); Alpha 2 g/dL 0.70 g/dL (0.50-1.00); Beta g/dL 0.70 g/dL (0.60-1.20); Gamma g/dL 1.40 g/dL (0.60-1.60); Total Protein 7.0 g/dL (6.3-8.2)
== END 2025-04-12 01:46 | disposition home or self-care (01) ==
LOC: LBO 01:45
PROVIDERS: PCP Family Medicine; Visit Provider Family Medicine
DX: E11.9 Type 2 diabetes mellitus without complications (principal); Z11.59 Encounter for screening for other viral diseases; R41.89 Other symptoms and signs involving cognitive functions and awareness; I10 Essential (primary) hypertension; G62.9 Polyneuropathy, unspecified; E03.9 Hypothyroidism, unspecified; M54.16 Radiculopathy, lumbar region
CPT/HCPCS: 36415; 80053; 80061; 85027; 86803; 72110; 82607; 83036; 84165; 84443; 86320